=== PATIENT | female | born 1940 | race Two or more races ===

== ENCOUNTER 2024-10-07 20:48 | Inpatient (IN) | payer MEDICARE, BC ==
[2024-10-07 21:14] LABS: Basophils # (A) 0.11 10*3/uL (0.00-0.10); Basophils % (A) 1.1 %; Eosinophils # (A) 0.22 10*3/uL (0.04-0.35); Eosinophils % (A) 2.1 %; HCT 46.4 % (37.2-46.3); HGB 15.5 g/dL (12.0-15.0); Lymphocytes # (A) 1.81 10*3/uL (0.90-5.00); Lymphocytes % (A) 17.5 %; MCH 32.4 pg (27.0-32.0); MCHC 33.4 g/dL (32.0-37.0); MCV 96.9 fL (80.0-97.0); Monocytes # (A) 1.01 10*3/uL (0.20-1.00); Monocytes % (A) 9.8 %; Neutrophils # (A) 7.14 10*3/uL (1.80-7.70); Neutrophils % (A) 68.9 %; Platelet Count 205 10*3/uL (140-440); RBC 4.79 10*6/uL (4.10-5.20); RDW 17.1 % (11.5-14.5); WBC 10.35 10*3/uL (4.50-10.00)
[2024-10-07 21:35] LABS: INR 1.0 (<1.2); Partial Thromboplastin Time 27.6 sec (22.0-30.0); Prothrombin Time 11.4 sec (10.0-12.5)
[2024-10-07] MEDS: SODIUM CHLORIDE 0.9% 500 ML 500 ML IV ONE (21:36)
[2024-10-07 21:37] LABS: ALT 28 U/L (4-34); AST 48 U/L (14-36); African American GFR (CKD) 44 (>60 ml/min/1.73 sqM); Albumin 3.8 g/dL (3.5-5.0); Alkaline Phosphatase 146 U/L (38-126); Anion Gap 13 mmol/L; Blood Urea Nitrogen 44 mg/dL (7-17); Calcium 9.2 mg/dL (8.4-10.2); Carbon Dioxide 34 mmol/L (22-30); Chloride 90 mmol/L (98-107); Glucose 162 mg/dL (74-99); Magnesium 2.2 mg/dL (1.6-2.3); Non-African American GFR(CKD) 38 (>60 ml/min/1.73 sqM); Sodium 137 mmol/L (137-145); Total Protein 6.8 g/dL (6.3-8.2)
[2024-10-07] MEDS: ONDANSETRON 4 MG/2 ML VIAL IVP STA (21:37)
[2024-10-07] MEDS: METOPROLOL TARTRATE 25 MG TAB PO STA (21:39)
[2024-10-07 21:56] LABS: Potassium 2.5 mmol/L (3.5-5.1)
[2024-10-07] MEDS: POTASSIUM CHLORIDE ER 20 MEQ TAB.ER PO STA (22:13)
--- NOTE | 2024-10-07 22:29 | XR ---
EXAMINATION TYPE: XR chest 2V DATE OF EXAM: 10/07/2024 9:28 PM COMPARISON: None. CLINICAL INDICATION: Female, 84 years old with history of dysrhythmia, TECHNIQUE: XR chest 2V view(s) obtained. FINDINGS: The heart size is normal. The pulmonary vasculature is prominent. There is a posterior infiltrate. Mild infiltrates at the lung bases frontal projection. There is fla ttening of diaphragms compatible with COPD IMPRESSION: 1. Bibasilar infiltrates. Correlate for atelectasis or pneumonia. Atypical pulmonary edema could be c onsidered. 2. COPD [facility], , 10/07/2024 10:27 PM
[2024-10-08] MEDS ORDERED: MORPHINE SULFATE 4 MG/ML SYRINGE IV PRN (00:30)
[2024-10-08] MEDS ORDERED: NITROGLYCERIN SL TABS 0.4 MG TAB SUBLINGUAL PRN (00:30)
--- NOTE | 2024-10-08 00:45 | ED ---
Chest Pain HPI - General Chief Complaint: Chest Pain Stated Complaint: abnormal labs Time Seen by Provider: 10/07/24 20:57 Source: patient Mode of arrival: EMS Limitations: no limitations - History of Present Illness Initial Comments: This patient has not 84-year-old woman who arrives here from [facility] to have evaluation for chest pain, palpitations, nausea and dyspnea. The patient states that the symptoms started earlier in the day and have gotten worse. When nursing staff checked on her they found her heart rate to be in the 130s. The patient does have history of atrial fibrillation and had cardioversion recently at [facility]. The patient is currently taking rivaroxaban and metoprolol. MD Complaint: chest pain -: hour(s) Onset: during rest Pain Location: substernal Pain Radiation: back Severity: moderate Quality: aching Consistency: constant Improves With: nothing Worsens With: nothing Anginal Symptoms: dyspnea Other Symptoms: palpitations Treatments Prior to Arrival: nitroglycerin, oxygen - Related Data Home Medications Medication Instructions Recorded Confirmed Ammonium Lactate Lotion 1 applic TOPICAL Q12H 10/08/24 10/17/24 [Lac-Hydrin 12% Lotion] Ascorbic Acid [Vitamin C] 500 mg PO BID 10/08/24 10/17/24 Aspirin 81 mg PO DAILY 10/08/24 10/17/24 Atorvastatin [Lipitor] 40 mg PO HS 10/08/24 10/17/24 Dapagliflozin Propanediol [Farxiga] 10 mg PO DAILY 10/08/24 10/17/24 Metoprolol Tartrate [Lopressor] 25 mg PO BID 10/08/24 10/17/24 Multivitamin + Minerals 1 tab PO DAILY 10/08/24 10/17/24 Nitro-Time Er 2.5mg 2.5 mg PO BID 10/08/24 10/17/24 Oyster Shell 500mg 500 mg PO HS 10/08/24 10/17/24 Pantoprazole Sodium [Protonix] 40 mg PO DAILY 10/08/24 10/17/24 Potassium Chloride [Klor-Con M20] 20 meq PO DAILY 10/08/24 10/17/24 Rivaroxaban [Xarelto] 15 mg PO HS 10/08/24 10/17/24 bisacodyL [Dulcolax] 10 mg RECTAL DAILY PRN 10/08/24 10/17/24 Magnesium Hydroxide [Milk of 2,400 mg PO DAILY PRN 10/17/24 10/17/24 Magnesia] Na Phos,M-B/Na Phos,Di-Ba [Fleet 133 ml RECTAL DAILY PRN 10/17/24 10/17/24 Adult] Previous Rx's Medication Instructions Recorded Spironolactone [Aldactone] 12.5 mg PO DAILY #0 tab 10/13/24 Torsemide [Soaanz] 20 mg PO DAILY #0 10/13/24 Allergies Allergy/AdvReac Type Severity Reaction Status Date / Time diatrizoic acid Allergy Unknown Verified 10/17/24 08:28 Penicillins Allergy Anaphylaxis Verified 10/17/24 08:28 prednisone Allergy Unknown Verified 10/17/24 08:28 shellfish derived Allergy Anaphylaxis Verified 10/17/24 08:28 Sulfa (Sulfonamide Allergy Unknown Verified 10/17/24 08:28 Antibiotics) Iodinated Contrast Media AdvReac Nausea & Verified 10/17/24 08:28 Vomiting & Diarrhea Review of Systems ROS Statement: Those systems with pertinent positive or pertinent negative responses have been documented in the HPI. ROS Other: All systems not noted in ROS Statement are negative. Constitutional: Denies: fever, chills Respiratory: Reports: as per HPI, dyspnea. Denies: cough Cardiovascular: Reports: as per HPI, chest pain, palpitations. Denies: edema, syncope Gastrointestinal: Reports: nausea. Denies: abdominal pain, vomiting, diarrhea Genitourinary: Denies: dysuria, hematuria Musculoskeletal: Denies: back pain Skin: Denies: rash Neurological: Denies: headache, weakness EKG Findings - EKG Results: EKG: interpreted by ERMD, normal axis EKG shows: tachycardia (Rate approximately 135 bpm), atrial fibrillation - Blocks, [place], Hypertrophy, ST Abn: AV and intraventricular conduction: right bundle branch block (fixed/intermittent, complete/incomplete) (Incomplete) Repolarization changes or abnormalities: ST or T wave suggestive of ischemia (Lateral ST depressions) Past Medical History Past Medical History: Coronary Artery Disease (CAD), Heart Failure, Hyperlipidemia Additional Past Medical History / Comment(s): CKD stage 3, low sodium and low potassium, NSTEMI 07/2024 History of Any Multi-Drug Resistant Organisms: None Reported Past Surgical History: No Surgical Hx Reported General Exam Limitations: no limitations General appearance: alert, in no apparent distress Head exam: Present: atraumatic, normocephalic Eye exam: Present: normal appearance. Absent: scleral icterus, conjunctival injection Neck exam: Present: normal inspection Respiratory exam: Present: normal lung sounds bilaterally. Absent: respiratory distress, wheezes, rales, rhonchi, stridor, accessory muscle use Cardiovascular Exam: Present: tachycardia, irregular rhythm, systolic murmur. Absent: diastolic murmur, rubs, gallop GI/Abdominal exam: Present: soft. Absent: distended, tenderness, guarding, rebound, rigid, mass Extremities exam: Present: normal inspection, normal capillary refill, pedal edema. Absent: calf tenderness Back exam: Present: normal inspection. Absent: CVA tenderness (R), CVA tenderness (L) Neurological exam: Present: alert Skin exam: Present: warm, dry, intact, normal color. Absent: rash Course Vital Signs 10/07/24 10/07/24 10/07/24 20:52 21:35 22:00 Temperature 98.1 F Pulse Rate 135 H 90 75 Respiratory 16 16 16 Rate Blood Pressure 96/62 100/63 105/54 O2 Sat by Pulse 97 98 98 Oximetry 10/07/24 10/08/24 10/08/24 22:48 00:00 02:00 Temperature 98.1 F 98.3 F Pulse Rate 78 70 71 Respiratory 18 18 16 Rate Blood Pressure 83/44 98/52 84/50 O2 Sat by Pulse 98 98 98 Oximetry 10/08/24 10/08/24 10/08/24 04:00 06:34 07:52 Temperature 98.4 F 97.8 F Pulse Rate 71 61 66 Respiratory 18 18 18 Rate Blood Pressure 92/51 91/52 106/92 O2 Sat by Pulse 98 98 94 L Oximetry 10/08/24 10/08/24 10/08/24 10:00 13:00 18:00 Temperature 97.8 F 97.8 F Pulse Rate 73 85 74 Respiratory 18 18 18 Rate Blood Pressure 100/56 110/64 99/56 O2 Sat by Pulse 96 95 96 Oximetry 10/08/24 10/08/24 20:22 20:26 Temperature Pulse Rate 77 80 Respiratory 16 Rate Blood Pressure 89/57 90/55 O2 Sat by Pulse 93 L Oximetry Chest Pain [facility] - MDM Patient is an 84-year-old woman sent from [facility] to have evaluation of chest pain, tachycardia, nausea. The patient is in atrial fibrillation with rapid ventricular rate. The patient is given IV fluids and beta-vanessa and did achieve rate control. The patient's symptoms resolved with rate control. Initial labs do reveal slightly elevated troponin. Patient will be admitted to have serial cardiac enzymes, telemetry monitoring, cardiology consultation Patient had chest x-ray that I interpreted as negative for acute infiltrate or pneumothorax, suspect element of congestive heart failure Was pt. sent in by a medical professional or institution (, PA, KILN CHARGER, urgent care, hospital, or alf...) When possible be specific @ -[No] Did you speak to anyone other than the patient for history (EMS, parent, family, police, friend...)? What history was obtained from this source @ -[No] Did you review nursing and triage notes (agree or disagree)? Why? @ -[I reviewed and agree with nursing and triage notes] Were old charts reviewed (outside hosp., previous admission, EMS record, old EKG, old radiological studies, urgent care reports/EKG's, alf records)? Report findings @ -[No old charts were reviewed] Differential Diagnosis (chest pain, altered mental status, abdominal pain women, abdominal pain men, vaginal bleeding, weakness, fever, dyspnea, syncope, headache, dizziness, GI bleed, back pain, seizure, CVA, palpatations, mental health, musculoskeletal)? @ -[Differential Chest Pain: Stable Angina, Unstable Angina, STEMI, NSTEMI Aortic Dissection, Pneumothorax, Musculoskeletal, Esophageal Spasm GERD, Cholecystitis, Pancreatitis, Zoster, this is not meant to be an all-inclusive list. EKG interpreted by me (3pts min.). @ -[Interpreted as above] X-rays interpreted by me (1pt min.). @ -[I interpreted as above CT interpreted by me (1pt min.). @ -[None done] U/S interpreted by me (1pt. min.). @ -[None done] What testing was considered but not performed or refused? (CT, X-rays, U/S, labs)? Why? @ -[None] What meds were considered but not given or refused? Why? @ -[IV heparin initially considered but the patient is compliant with her Xarelto, this will be held Did you discuss the management of the patient with other professionals (professionals i.e. , PA, KILN CHARGER, lab, RT, psych nurse, social media marketing manager, collection technician, teacher, sheriff's officer, home health care case manager)? Give summary @ -[Case discussed with admitting physician and treatment recommendations are incorporated Was smoking cessation discussed for >3mins.? @ -[No] Was critical care preformed (if so, how long)? @ -[Yes, 35 minutes Were there social determinants of health that impacted care today? How? (Homelessness, low income, unemployed, alcoholism, drug addiction, transportation, low edu. Level, literacy, decrease access to med. care, long-term, rehab)? @ -[No] Was there de-escalation of care discussed even if they declined (Discuss DNR or withdrawal of care, Hospice)? DNR status @ -[No] What co-morbidities impacted this encounter? (DM, HTN, Smoking, COPD, CAD, Cancer, CVA, ARF, Chemo, Hep., AIDS, mental health diagnosis, sleep apnea, morbid obesity)? @ - A-fib with recent cardioversion, hypertension which Was patient admitted / discharged? Hospital course, mention meds given and route, prescriptions, significant lab abnormalities, going to OR and other pertinent info. @ -As above Undiagnosed new problem with uncertain prognosis? @ -[No] Drug Therapy requiring intensive monitoring for toxicity (Heparin, Nitro, Insulin, Cardizem)? @ -[No] Were any procedures done? @ -[No] Diagnosis/symptom? @ -[Atrial fibrillation with rapid ventricular rate Acute NSTEMI hypokalemia Acute, or Chronic, or Acute on Chronic? @ -[Acute Uncomplicated (without systemic symptoms) or Complicated (systemic symptoms)? @ -[UnComplicated Side effects of treatment? @ -[No] Exacerbation, Progression, or Severe Exacerbation? @ -[No] Poses a threat to life or bodily function? How? (Chest pain, [place], [place], pneumonia, PE, COPD, DKA, ARF, appy, cholecystitis, CVA, Diverticulitis, Homicidal, Suicidal, threat to staff... and all critical care pts) @ -[Yes, requires further cardiology evaluation and treatment All treatments are based on ideal body weight as in ED triage Disposition Clinical Impression: Chest pain, Atrial fibrillation with rapid ventricular response, NSTEMI (non-ST elevated myocardial infarction) Disposition: ADMITTED IP TO THIS HOSP Condition: Fair Is patient prescribed a controlled substance at d/c from ED?: No
[2024-10-08] MEDS: SODIUM CHLORIDE 0.9% 1,000 ML IV SCH (01:17)
[2024-10-08] MEDS: HEPARIN SODIUM 1,000 UN/ML (10ML VL) IV ONE (05:41)
[2024-10-08] MEDS: HEPARIN SOD,PORK IN 0.45% NACL 25,000 UNIT in 0.45% NACL 1 250ML.BAG IV SCH (05:42)
[2024-10-08 07:01] LABS: HCT 43.9 % (37.2-46.3); HGB 14.1 g/dL (12.0-15.0); MCH 32.2 pg (27.0-32.0); MCHC 32.1 g/dL (32.0-37.0); MCV 100.2 fL (80.0-97.0); Platelet Count 191 10*3/uL (140-440); RBC 4.38 10*6/uL (4.10-5.20); RDW 17.1 % (11.5-14.5); WBC 8.89 10*3/uL (4.50-10.00)
--- NOTE | 2024-10-08 07:20 | XR ---
EXAMINATION TYPE: XR chest 1V DATE OF EXAM: 10/08/2024 7:11 AM COMPARISON: Chest radiographs from 10/07/2024 TECHNIQUE: XR chest 1V Portable AP radiograph of the chest. CLINICAL INDICATION:Female, 84 years old with history of CHF; FINDINGS: Lungs/Pleura: No pleural effusion or focal consolidation or pneumothorax. Diffuse interstitial promin ence. Heart/mediastinum: Cardiomediastinal silhouette is enlarged and stable. Atherosclerotic calcificatio ns are seen in the aorta. Musculoskeletal: No acute osseous pathology. IMPRESSION: Cardiomegaly with diffuse interstitial prominence. Correlate for possible CHF exacerbation. [facility], , 10/08/2024 7:18 AM
[2024-10-08] MEDS: POTASSIUM CHLORIDE 20 MEQ in WATER FOR INJECTION 1 100ML.BAG IVPB SCH (08:17)
[2024-10-08 08:20] LABS: ALT 27 U/L (4-34); AST 99 U/L (14-36); African American GFR (CKD) 44 (>60 ml/min/1.73 sqM); Albumin 3.2 g/dL (3.5-5.0); Alkaline Phosphatase 117 U/L (38-126); Anion Gap 5 mmol/L; Blood Urea Nitrogen 38 mg/dL (7-17); Calcium 8.4 mg/dL (8.4-10.2); Carbon Dioxide 37 mmol/L (22-30); Chloride 99 mmol/L (98-107); Glucose 92 mg/dL (74-99); Non-African American GFR(CKD) 38 (>60 ml/min/1.73 sqM); Potassium 3.1 mmol/L (3.5-5.1); Sodium 141 mmol/L (137-145); Total Protein 6.0 g/dL (6.3-8.2)
[2024-10-08 08:27] LABS: NT-Pro-B-Type Natriuretic Pept 11000 pg/mL
[2024-10-08 08:30] LABS: INR 1.1 (<1.2); Prothrombin Time 11.9 sec (10.0-12.5)
[2024-10-08] MEDS: MAGNESIUM SULFATE-D5W PMX 1 GM in DEXTROSE/WATER 1 100ML.BAG IVPB SCH (08:44)
[2024-10-08] MEDS: METOPROLOL TARTRATE 25 MG TAB PO SCH (10:22)
--- NOTE | 2024-10-08 13:54 | P.HPIM ---
History of Present Illness H&P Date: 10/08/24 Chief Complaint: Atrial fibrillation with RVR/non-ST elevation AR HISTORY OF PRESENT ILLNESS: This is an 84-year-old female with a previous medical history signific ant for hypertension and hypertensive cardiovascular disease, mixed hyperlipidemia, paroxysmal atrial fibrillation, coronary artery disease involving knik artery, allergic rhinitis, hypothyroidism, mitral regurgitation and aortic insufficiency, patient was recently hospitalized at [facility] for what appears to be an acute diastolic heart failure due to atrial fibrillation with rapid ventricular response, she also was diagnosed with non-ST elevation myocardial infarction at that time she underwent DC cardioversion she was sent to [facility] for physical therapy rehabilitation patient was doing just fine, I saw her the [id number] about a day before yesterday, and she was doing much much better, she was planning to get out of the [facility] yesterday she was sitting up and developed to have a significant left-sided chest pain radiating to the jaw down the arm she was given 3 nitroglycerin and her blood pressure dropped, her heart rate went to 240, she developed to have an atrial fibrillation with rapid regular response she was sent to the emergency department at [facility] she was found to be in atrial fibrillation with RVR, at the same time her troponin was slightly elevated however the second troponin came back elevated at 4 patient was ruled into acute non-ST elevation AR, she was started on heparin drip, she was also started on metoprolol 25 mg orally twice every day, she is currently back in sinus rhythm, she appears to be somewhat hypotensive, she did receive IV fluid in the form of normal saline at 75 cc an hour, I will keep that until reevaluate the patient with a chest x-ray REVIEW OF SYSTEMS: Constitutional: No documented fever, no chills, no night sweats. No weight change. positive for weakness, fatigue or lethargy. No daytime sleepiness. EENT: No headache. No blurred vision or double vision, no loss of vision. No loss of Hearing, no ringing in the ears, no dizziness. No nasal drainage or congestion. No epistaxis. No sore throat. Lungs: positive for shortness of breath, no cough, no sputum production. No wheezing. Reports dyspnea with activity. Cardiovascular: positive for chest pain, positive for lower extremity edema. positive for palpitations. No paroxysmal nocturnal dyspnea. positive for orthopnea. No lightheadedness or dizziness. No syncopal episodes. Abdominal: Reports abdominal pain. positive for nausea, vomiting. No diarrhea. No constipation. No bloody or tarry stools reports loss of appetite. Genitourinary: No dysuria, increased frequency, urgency. No urinary retention. Musculoskeletal: No myalgias. No muscle weakness, no gait dysfunction, no frequent falls. No back pain. No neck pain. Integumentary: No wounds, no lesions. No rash or pruritus. No unusual bruising. No change in hair or nails. Neurologic: No aphasia. No facial droop. No change in mentation. No head injury. No headache. No paralysis. No paresthesia. Psychiatric: No depression. positive for anxiety. No mood swings. Endocrine: No abnormal blood sugars. No weight change. PAST MEDICAL HISTORY: Hypertension and hypertensive vascular disease. Mixed hyperlipidemia. Hypothyroidism. Coronary artery disease. Paroxysmal atrial fibrillation. Nonrheumatic mitral regurgitation None rheumatic aortic valve regurgitation Allergic rhinitis. Chronic diastolic heart failure. PAST SURGICAL HISTORY: Appendectomy 1985 hysterectomy 1985 Colonoscopy. Right breast biopsy 1967 Left breast biopsy 1984 Hernia repair 1998 D&C 1984 Cataract surgery 2014 Hand and wrist ORIF 2023 Danny Riggins SOCIAL HISTORY: Patient denies any alcohol ingestion, she denies any drug use or abuse, she does not have any marijuana use, she used to smoke, she quit many years ago, she is currently at [facility] for physical therapy and rehabilitation. FAMILY HISTORY: Father at age 64 from colon cancer mother at the age of 84 from CVA patient had 1 sister who at the age of 36 from cervical cancer and had complication from radiation treatment including colitis and she has 1 at the age of 68 from cervical cancer and 1 from ischemic cardiomyopathy post AICD patient had 1 son who at the age of 42 from cardiac arrest PHYSICAL EXAMINATION: General: 84-year-old female laying down in bed in no respiratory distress HEENT: Head is atraumatic, normocephalic, pupils were equal round reactive to l ight and recommendation, extraocular muscle movement were intact, sclera nonicteric, conjunctivae were pale, mucous membranes of the mouth are somewhat dry. Neck: Supple, positive for JVP, decreased carotid upstroke bilaterally, no lymphadenopathy. Chest: Decreased breath sounds at the bases, few rhonchi, no expiratory wheezes, no chest wall tenderness, no intercostal retractions. Heart: First heart sound is normal, second heart sounds normal systolic ejection murmur 2/6 again the left sternal border. Abdomen: Soft, nontender, nondistended, positive bowel sounds. Extremities: There is +1 edema no calf tenderness DP +2 bilaterally. Neurologic examination: Patient is awake alert and oriented x3, cranial nerves II-12 appear grossly intact, muscle power were 4 out of 5 in upper extremities and 3 out of 5 in bilateral lower extremities, deep tendon reflexes normal bilaterally. ASSESSMENT AND PLAN: 1. Atrial fibrillation with rapid ventricular response converted back into sinus rhythm, continue metoprolol 25 mg orally twice every day, continue heparin drip, transition the patient into Xarelto 15 mg orally once every day, monitor the patient symptoms very closely, cardiology consultation, get records from [facility] 2. Non-ST elevation myocardial infarction. Continue patient on aspirin 81 mg once every day, heparin drip, continue patient on metoprolol 25 mg orally twice every day, start the patient on Lipitor 40 mg orally once every day, cardiology consultation, patient may need to go for left heart catheterization when she is more stable. 3. Hypertension and hypertensive cardiovascular disease. Continue patient on metoprolol 25 mg orally twice every day. Monitor the patient blood pressure very closely, hold for systolic blood pressure less than 100. 4. Hyperlipidemia. Continue the patient on atorvastatin 40 mg orally once every day monitor lipid panel, keep LDL 55-70. 5. Paroxysmal atrial fibrillation currently in sinus rhythm continue treatment as in Paragraph#1. 6. Hypothyroidism. Currently not taking any medication for replacement brooke tor the patient TSH and free T4. 7. Acute on chronic diastolic heart failure. we will maintain the patient on metoprolol 25 mg orally twice every day, start the patient on Lasix 40 mg IV every 12 hours, metolazone 2.5 mg orally once every day, monitor the patient input and output and daily weight. 8. Hypokalemia patient will receive 40 meq in the ER I will give another 40 mill equivalent IV piggyback x 1 check potassium and magnesium patient will be given magnesium sulfate 2 g piggyback x 1 as well. Patient will be started on potassium chloride 20 mill equivalents orally twice every day 9. Chronic kidney disease stage IIIa. Monitor the patient input and output and avoid nephrotoxins. Continue Lasix 40 mg IV push every 12 hours, metolazone 2.5 mg orally once every day monitor the patient potassium very closely 10. Osteopenia of the right hip. Stable at this time. 11. Medical debility. Physical therapy evaluation. 12. DVT prophylaxis. Currently on heparin drip will transition into Xarelto 15 mg orally once every day. 13. GI prophylaxis. Continue patient on Protonix 40 mg orally once every day. 14. Admit to inpatient. Estimated length of stay 2 midnights. 15. Patient is full code. Past Medical History Past Medical History: Coronary Artery Disease (CAD), Heart Failure, Hyperlipidemia Additional Past Medical History / Comment(s): CKD stage 3, low sodium and low potassium, NSTEMI 07/2024 History of Any Multi-Drug Resistant Organisms: None Reported Past Surgical History: No Surgical Hx Reported Medications and Allergies Home Medications Medication Instructions Recorded Confirmed Type Ammonium Lactate Lotion 1 applic TOPICAL Q12H 10/08/24 10/08/24 History [Lac-Hydrin 12% Lotion] Ascorbic Acid [Vitamin C] 500 mg PO BID 10/08/24 10/08/24 History Aspirin 81 mg PO DAILY 10/08/24 10/08/24 History Atorvastatin [Lipitor] 40 mg PO HS 10/08/24 10/08/24 History Dapagliflozin Propanediol [Farxiga] 10 mg PO DAILY 10/08/24 10/08/24 History Magnesium Hydroxide [Milk of 7,200 mg PO DAILY PRN 10/08/24 10/08/24 History Magnesia Concentrate] Menthol-Zinc Oxide Oint 1 applic TOPICAL BID 10/08/24 10/08/24 History [Calmoseptine Ointment] Metoprolol Tartrate [Lopressor] 25 mg PO BID 10/08/24 10/08/24 History Multivitamin + Minerals 1 tab PO DAILY 10/08/24 10/08/24 History Nitro-Time Er 2.5mg 2.5 mg PO BID 10/08/24 10/08/24 History Oyster Shell 500mg 500 mg PO HS 10/08/24 10/08/24 History Pantoprazole Sodium [Protonix] 40 mg PO DAILY 10/08/24 10/08/24 History Potassium Chloride [Klor-Con M20] 20 meq PO DAILY 10/08/24 10/08/24 History Rivaroxaban [Xarelto] 15 mg PO HS 10/08/24 10/08/24 History Torsemide [Soaanz] 40 mg PO DAILY 10/08/24 10/08/24 History bisacodyL [Dulcolax] 10 mg RECTAL DAILY PRN 10/08/24 10/08/24 History metOLazone 2.5 mg PO DAILY 10/08/24 10/08/24 History Allergies Allergy/AdvReac Type Severity Reaction Status Date / Time diatrizoic acid Allergy Unknown Verified 10/08/24 09:12 Penicillins Allergy Anaphylaxis Verified 10/08/24 09:12 prednisone Allergy Unknown Verified 10/08/24 09:12 shellfish derived Allergy Anaphylaxis Verified 10/08/24 09:12 Sulfa (Sulfonamide Allergy Unknown Verified 10/08/24 09:12 Antibiotics) Iodinated Contrast Media AdvReac Nausea & Verified 10/08/24 09:12 Vomiting & Diarrhea Physical Exam Vitals: Vital Signs Temp Pulse Resp BP Pulse Ox 10/08/24 06:34 98.4 F 61 18 91/52 98 10/08/24 04:00 71 18 92/51 98 10/08/24 02:00 98.3 F 71 16 84/50 98 10/08/24 00:00 98.1 F 70 18 98/52 98 10/07/24 22:48 78 18 83/44 98 10/07/24 22:00 75 16 105/54 98 10/07/24 21:35 90 16 100/63 98 10/07/24 20:52 98.1 F 135 H 16 96/62 97 Intake and Output 10/07/24 10/07/24 10/08/24 14:59 22:59 06:59 Other: Weight 51.256 kg Results CBC & Chem 7: 10/08/24 06:43 10/08/24 06:43 Labs: Abnormal Lab Results - Last 24 Hours (Table) 10/07/24 10/07/24 10/07/24 Range/Units 20:48 20:48 20:48 WBC 10.35 H (4.50-10.00) 10*3/uL Hgb 15.5 H (12.0-15.0) g/dL Hct 46.4 H (37.2-46.3) % MCH 32.4 H (27.0-32.0) pg Immature Gran # 0.06 H (0.00-0.04) 10*3/uL Monocytes # 1.01 H (0.20-1.00) 10*3/uL Basophils # 0.11 H (0.00-0.10) 10*3/uL Potassium 2.5 L* (3.5-5.1) mmol/L Chloride 90 L (98-107) mmol/L Carbon Dioxide 34 H (22-30) mmol/L BUN 44 H (7-17) mg/dL Creatinine 1.29 H (0.52-1.04) mg/dL Glucose 162 H (74-99) mg/dL Total Bilirubin 1.9 H (0.2-1.3) mg/dL AST 48 H (14-36) U/L Alkaline Phosphatase 146 H (38-126) U/L Troponin I 0.105 H* (0.000-0.034) ng/mL 10/08/24 Range/Units 03:40 WBC (4.50-10.00) 10*3/uL Hgb (12.0-15.0) g/dL Hct (37.2-46.3) % MCH (27.0-32.0) pg Immature Gran # (0.00-0.04) 10*3/uL Monocytes # (0.20-1.00) 10*3/uL Basophils # (0.00-0.10) 10*3/uL Potassium (3.5-5.1) mmol/L Chloride (98-107) mmol/L Carbon Dioxide (22-30) mmol/L BUN (7-17) mg/dL Creatinine (0.52-1.04) mg/dL Glucose (74-99) mg/dL Total Bilirubin (0.2-1.3) mg/dL AST (14-36) U/L Alkaline Phosphatase (38-126) U/L Troponin I 4.630 H* (0.000-0.034) ng/mL
[2024-10-08] MEDS ORDERED: MAGNESIUM HYDROXIDE 2,400 MG/30 ML CUP PO PRN (13:55)
[2024-10-08] MEDS: ASPIRIN 81 MG PO SCH (15:14)
[2024-10-08] MEDS: AMMONIUM LACTATE 12% LOTION 225 GM BTL TOPICAL SCH (16:39)
--- NOTE | 2024-10-08 18:54 | P.CRDCN ---
History of Present Illness Consult date: 10/08/24 History of present illness: HISTORY OF PRESENTING ILLNESS: 84-year-old with PMH of hypertension dyslipidemia, paroxysmal atrial fibrillation CAD. She was recently at [facility] for mild HFpEF exacerbation, A-fib RVR. She also had mild NSTEMI. She underwent cardioversion and was sent to [facility]. This time she presented to the hospital because of left-sided chest pain that was radiating to her jaw. She was also noticed to be in tachycardia when she was having the substernal chest heaviness symptoms. Admission EKG appears to be atrial flutter with RVR with heart rate of around 135 bpm along with diffuse ST depression Repeat EKG shows atrial flutter with 2 is to 1 conduction with residual first- degree AV block Initial potassium 2.5, repeat 3.1, creatinine 1.29, magnesium 2.2, Troponin 0.1, 4.6, 9.9 NT-proBNP 11,000 Hb 15.5 Chest x-ray does not show significant pulm congestion or consolidation Home medication metolazone 2.5 mg daily, torsemide 40 mg daily, Xarelto 15, metoprolol 25 twice daily, Farxiga 10, Lipitor 40, aspirin 81 ... ................................................................................ ........................................................... REVIEW OF SYSTEMS: 14 point review of system is negative except what is mentioned above in HPI. ................................................................ .............................................................................. PHYSICAL EXAMINATION: Neck: Brisk carotid upstroke, no jugular venous distention. Lungs: Poor inspiratory effort, mild crackles audible Heart: Irregular pulse, mild systolic murmur audible Abdomen: Soft nontender, positive bowel sounds. Extremities: Mild lower extremity edema Neuro: Alert, oritented, no focal deficits. Detailed neuro exam was not performed. ............................................................ ................................................................................ .. ASSESSMENT: # Atrial flutter with 2 is to 1 conduction, currently rate controlled. RVR on admission with symptoms of chest pressure and rate related EKG changes with diffuse ST depression # Paroxysmal atrial fibrillation with recent cardioversion at [facility] # Mild HFpEF exacerbation # Type II NSTEMI, likely from demand supply mismatch from RVR # Hypokalemia # CKD PLAN: Continue IV heparin drip for 48 hours Aspirin, Lipitor, Farxiga 10 mg Reduce Lasix from twice daily to once a day 40 mg IV. Transition to p.o. tomorrow. Continue torsemide 40 daily. Metoprolol 25 twice daily Start amiodarone 400 mg twice daily for 1 week thereafter reduce the dose to 200 mg twice daily for 1 week and thereafter reduce the dose to 200 mg daily. Start date 10/08/2024 Gavin Soto MD, [facility], [place] Past Medical History Past Medical History: Coronary Artery Disease (CAD), Heart Failure, Hyperlipidemia Additional Past Medical History / Comment(s): CKD stage 3, low sodium and low potassium, NSTEMI 07/2024 History of Any Multi-Drug Resistant Organisms: None Reported Past Surgical History: No Surgical Hx Reported Medications and Allergies Home Medications Medication Instructions Recorded Confirmed Type Ammonium Lactate Lotion 1 applic TOPICAL Q12H 10/08/24 10/08/24 History [Lac-Hydrin 12% Lotion] Ascorbic Acid [Vitamin C] 500 mg PO BID 10/08/24 10/08/24 History Aspirin 81 mg PO DAILY 10/08/24 10/08/24 History Atorvastatin [Lipitor] 40 mg PO HS 10/08/24 10/08/24 History Dapagliflozin Propanediol [Farxiga] 10 mg PO DAILY 10/08/24 10/08/24 History Magnesium Hydroxide [Milk of 7,200 mg PO DAILY PRN 10/08/24 10/08/24 History Magnesia Concentrate] Menthol-Zinc Oxide Oint 1 applic TOPICAL BID 10/08/24 10/08/24 History [Calmoseptine Ointment] Metoprolol Tartrate [Lopressor] 25 mg PO BID 10/08/24 10/08/24 History Multivitamin + Minerals 1 tab PO DAILY 10/08/24 10/08/24 History Nitro-Time Er 2.5mg 2.5 mg PO BID 10/08/24 10/08/24 History Oyster Shell 500mg 500 mg PO HS 10/08/24 10/08/24 History Pantoprazole Sodium [Protonix] 40 mg PO DAILY 10/08/24 10/08/24 History Potassium Chloride [Klor-Con M20] 20 meq PO DAILY 10/08/24 10/08/24 History Rivaroxaban [Xarelto] 15 mg PO HS 10/08/24 10/08/24 History Torsemide [Soaanz] 40 mg PO DAILY 10/08/24 10/08/24 History bisacodyL [Dulcolax] 10 mg RECTAL DAILY PRN 10/08/24 10/08/24 History metOLazone 2.5 mg PO DAILY 10/08/24 10/08/24 History Allergies Allergy/AdvReac Type Severity Reaction Status Date / Time diatrizoic acid Allergy Unknown Verified 10/08/24 09:12 Penicillins Allergy Anaphylaxis Verified 10/08/24 09:12 prednisone Allergy Unknown Verified 10/08/24 09:12 shellfish derived Allergy Anaphylaxis Verified 10/08/24 09:12 Sulfa (Sulfonamide Allergy Unknown Verified 10/08/24 09:12 Antibiotics) Iodinated Contrast Media AdvReac Nausea & Verified 10/08/24 09:12 Vomiting & Diarrhea Physical Exam Vitals: Vital Signs Temp Pulse Resp BP Pulse Ox 10/08/24 18:00 97.8 F 74 18 99/56 96 10/08/24 13:00 85 18 110/64 95 10/08/24 10:00 97.8 F 73 18 100/56 96 10/08/24 07:52 97.8 F 66 18 106/92 94 L 10/08/24 06:34 98.4 F 61 18 91/52 98 10/08/24 04:00 71 18 92/51 98 10/08/24 02:00 98.3 F 71 16 84/50 98 10/08/24 00:00 98.1 F 70 18 98/52 98 10/07/24 22:48 78 18 83/44 98 10/07/24 22:00 75 16 105/54 98 10/07/24 21:35 90 16 100/63 98 10/07/24 20:52 98.1 F 135 H 16 96/62 97 Intake and Output 10/08/24 10/08/24 10/08/24 06:59 14:59 22:59 Intake Total 49.311 Balance 49.311 Intake: Intake, IV Titration 49.311 Amount Heparin Sod,Pork in 0.45% 49.311 NaCl 25,000 unit In 0.45 % NaCl 1 250ml.bag @ 12 UNITS/KG/HR 6.151 mls/hr IV .Q24H [facility] Rx#: [id number] Results 10/08/24 06:43 10/08/24 06:43 Cardiac Enzymes 10/07/24 10/07/24 10/08/24 Range/Units 20:48 20:48 03:40 AST 48 H (14-36) U/L Troponin I 0.105 H* 4.630 H* (0.000-0.034) ng/mL 10/08/24 10/08/24 Range/Units 06:43 06:43 AST 99 H (14-36) U/L Troponin I 9.900 H* (0.000-0.034) ng/mL Coagulation 10/07/24 10/08/24 10/08/24 Range/Units 20:48 07:42 12:10 PT 11.4 11.9 (10.0-12.5) sec APTT 27.6 79.0 H (22.0-30.0) sec CBC 10/07/24 10/08/24 Range/Units 20:48 06:43 WBC 10.35 H 8.89 (4.50-10.00) 10*3/uL RBC 4.79 4.38 (4.10-5.20) 10*6/uL Hgb 15.5 H 14.1 (12.0-15.0) g/dL Hct 46.4 H 43.9 (37.2-46.3) % Plt Count 205 191 (140-440) 10*3/uL Comprehensive Metabolic Panel 10/07/24 10/08/24 Range/Units 20:48 06:43 Sodium 137 141 (137-145) mmol/L Potassium 2.5 L* 3.1 L (3.5-5.1) mmol/L Chloride 90 L 99 (98-107) mmol/L Carbon Dioxide 34 H 37 H (22-30) mmol/L BUN 44 H 38 H (7-17) mg/dL Creatinine 1.29 H 1.29 H (0.52-1.04) mg/dL Glucose 162 H 92 (74-99) mg/dL Calcium 9.2 8.4 (8.4-10.2) mg/dL AST 48 H 99 H (14-36) U/L ALT 28 27 (4-34) U/L Alkaline Phosphatase 146 H 117 (38-126) U/L Total Protein 6.8 6.0 L (6.3-8.2) g/dL Albumin 3.8 3.2 L (3.5-5.0) g/dL Current Medications Generic Name Dose Route Start Last Admin Trade Name Freq PRN Reason Stop Dose Admin Amiodarone HCl 200 mg 10/08/24 21:00 Amiodarone 200 Mg Tab PO BID [facility] Ascorbic Acid 500 mg 10/08/24 21:00 Ascorbic Acid 500 Mg Tab PO BID [facility] Aspirin 81 mg 10/08/24 14:00 10/08/24 15:14 Aspirin 81 Mg PO 81 mg DAILY [facility] Administration Atorvastatin Calcium 40 mg 10/08/24 21:00 Atorvastatin 40 Mg Tab PO HS [facility] Bisacodyl 10 mg 10/08/24 13:55 Bisacodyl 10 Mg Supp RECTAL DAILY PRN Constipation Calamine/Phenol 1 applic 10/08/24 21:00 Menthol-Zinc Oxide Oint 113 Gm Tube TOPICAL BID [facility] Protocol Calcium Carbonate/Glycine 500 mg 10/08/24 21:00 Calcium Carbonate 500 Mg Chewable PO HS [facility] Dapagliflozin 10 mg 10/09/24 09:00 Dapagliflozin Propanediol 10 Mg Tablet PO DAILY [facility] Furosemide 40 mg 10/09/24 09:00 Furosemide 10 Mg/Ml 4 Ml Vial IV DAILY [facility] Heparin Sodium (Porcine) 0 unit 10/08/24 05:15 Heparin Sodium 1,000 Un/Ml (10ml Vl) IV PER PROTOCOL PRN Low PTT Protocol Heparin Sodium/Sodium Chloride 250 mls @ 6.151 mls/hr 10/08/24 05:15 10/08/24 13:43 25,000 unit/ Sodium Chloride IV 10 units/kg/hr .Q24H [facility] 5.126 mls/hr Titration Protocol 12 UNITS/KG/HR Lactic Acid 1 applic 10/08/24 14:00 10/08/24 16:39 Ammonium Lactate 12% Lotion 225 Gm Btl TOPICAL Not Given Q12HR [facility] Protocol Magnesium Hydroxide 7,200 mg 10/08/24 13:55 Magnesium Hydroxide 2,400 Mg/30 Ml Cup PO DAILY PRN Constipation Metolazone 2.5 mg 10/09/24 09:00 Metolazone 2.5 Mg Tab PO DAILY [facility] Metoprolol Tartrate 25 mg 10/08/24 09:00 10/08/24 10:22 Metoprolol Tartrate 25 Mg Tab PO 25 mg BID [facility] Administration Morphine Sulfate 4 mg 10/08/24 00:30 Morphine Sulfate 4 Mg/Ml Syringe IV Q5M PRN Chest Pain Multivitamins 1 each 10/09/24 09:00 Multivitamins, Thera 1 Each Tab PO DAILY [facility] Nitroglycerin 0.4 mg 10/08/24 00:30 Nitroglycerin Sl Tabs 0.4 Mg Tab SUBLINGUAL Q5M PRN Chest Pain Non-Formulary Medication 2.5 mg 10/08/24 21:00 Nitro-Time Er 2.5mg PO BID [facility] Pantoprazole Sodium 40 mg 10/09/24 09:00 Pantoprazole 40 Mg Tablet PO DAILY [facility] Potassium Chloride 20 meq 10/08/24 21:00 Potassium Chloride Er 20 Meq Tab.Er PO BID [facility] Intake and Output 10/08/24 10/08/24 10/08/24 06:59 14:59 22:59 Intake Total 49.311 Balance 49.311 Intake: Intake, IV Titration 49.311 Amount Heparin Sod,Pork in 0.45% 49.311 NaCl 25,000 unit In 0.45 % NaCl 1 250ml.bag @ 12 UNITS/KG/HR 6.151 mls/hr IV .Q24H [facility] Rx#: [id number] 10/08/24 06:43 10/08/24 06:43
[2024-10-08] MEDS ORDERED: FUROSEMIDE 10 MG/ML 4 ML VIAL IV SCH (21:00)
[2024-10-08] MEDS: NITRO TIME PO SCH (21:44)
[2024-10-08] MEDS: CALCIUM CARBONATE 500 MG CHEWABLE PO SCH (22:07)
[2024-10-08] MEDS: AMIODARONE 200 MG TAB PO SCH (22:07)
[2024-10-08] MEDS: POTASSIUM CHLORIDE ER 20 MEQ TAB.ER PO SCH (22:07)
[2024-10-08] MEDS: ATORVASTATIN 40 MG TAB PO SCH (22:07)
[2024-10-08] MEDS: ASCORBIC ACID 500 MG TAB PO SCH (22:07)
[2024-10-08] MEDS: MENTHOL-ZINC OXIDE OINT 113 GM TUBE TOPICAL SCH (22:08)
[2024-10-09 06:00] LABS: HCT 47.1 % (37.2-46.3); HGB 14.9 g/dL (12.0-15.0); MCH 31.6 pg (27.0-32.0); MCHC 31.6 g/dL (32.0-37.0); MCV 100.0 fL (80.0-97.0); Platelet Count 197 10*3/uL (140-440); RBC 4.71 10*6/uL (4.10-5.20); RDW 17.5 % (11.5-14.5); WBC 15.10 10*3/uL (4.50-10.00)
[2024-10-09 06:35] LABS: ALT 43 U/L (4-34); AST 97 U/L (14-36); African American GFR (CKD) 65 (>60 ml/min/1.73 sqM); Albumin 3.4 g/dL (3.5-5.0); Alkaline Phosphatase 154 U/L (38-126); Anion Gap 8 mmol/L; Blood Urea Nitrogen 30 mg/dL (7-17); Calcium 9.1 mg/dL (8.4-10.2); Carbon Dioxide 25 mmol/L (22-30); Chloride 104 mmol/L (98-107); Glucose 152 mg/dL (74-99); Non-African American GFR(CKD) 56 (>60 ml/min/1.73 sqM); Sodium 137 mmol/L (137-145); Total Protein 6.2 g/dL (6.3-8.2)
[2024-10-09 06:47] LABS: Potassium 4.2 mmol/L (3.5-5.1)
[2024-10-09 08:47] LABS: Cholesterol 142.00 mg/dL (0.00-200.00); HDL Cholesterol 63.30 mg/dL (40.00-60.00); LDL Cholesterol,Calculated 65.3 mg/dL (0.0-131.0); Triglycerides 66.90 mg/dL (0.00-149.00); VLDL Calculation 13.38 mg/dL (5.00-40.00)
[2024-10-09] MEDS: MULTIVITAMINS, THERA 1 EACH TAB PO SCH (09:55)
[2024-10-09] MEDS: DAPAGLIFLOZIN PROPANEDIOL 10 MG TABLET PO SCH (09:55)
[2024-10-09] MEDS: FUROSEMIDE 10 MG/ML 4 ML VIAL IV SCH (09:56)
[2024-10-09] MEDS: PANTOPRAZOLE 40 MG TABLET PO SCH (09:56)
[2024-10-09] MEDS: metOLazone 2.5 MG TAB PO SCH (09:56)
[2024-10-09] MEDS: LIDOCAINE 4% PATCH TOPICAL SCH (11:10)
[2024-10-09] MEDS: HEPARIN SODIUM 1,000 UN/ML (10ML VL) IV ONE (11:15)
--- NOTE | 2024-10-09 12:14 | P.PN ---
Subjective Progress Note Date: 10/09/24 HISTORY OF PRESENTING ILLNESS: 84-year-old with PMH of hypertension dyslipidemia, paroxysmal atrial fibril lation CAD. She was recently at [facility] for mild HFpEF exacerbation, A-fib RVR. She also had mild NSTEMI. She underwent cardioversion and was sent to [facility]. This time she presented to the hospital because of left-sided chest pain that was radiating to her jaw. She was also noticed to be in tachycardia when she was having the substernal chest heaviness symptoms. Admission EKG appears to be atrial flutter with RVR with heart rate of around 135 b[address] with diffuse [address] depression Repeat EKG shows atrial flutter with 2 is to 1 conduction with residual first- degree AV block Initial potassium 2.5, repeat 3.1, creatinine 1.29, magnesium 2.2, Troponin 0.1, 4.6, 9.9 NT-proBNP 11,000 LDL 65, TG 66 Hb 15.5 Chest x-ray does not show significant pulm congestion or consolidation Home medication metolazone 2.5 mg daily, torsemide 40 mg daily, Xarelto 15, metoprolol 25 twice daily, Farxiga 10, Lipitor 40, aspirin 81 Echo from July 2024 shows EF 55, moderate TR, moderate MR, mild AI, RVSP 45 ................................................................................ .............................................................. Progress note 10/09/2024 Patient converted out of atrial flutter to sinus rhythm around 3:30 AM 10/09/2024 initially she had bradycardia, currently heart rates around 60 when she is sitting in the chair. BP 107/61 labs shows hemoglobin 14.9, BUN 30, creatinine 0.9, ...................................................................... ........................................................................ PHYSICAL EXAMINATION: Neck: Brisk carotid upstroke, no jugular venous distention. Lungs: Poor inspiratory effort, mild crackles audible Heart: Regular pulses, mild systolic murmur audible Abdomen: Soft nontender, positive bowel sounds. Extremities: 1+ lower extremity edema with chronic skin changes and erythema in bilateral lower extremity. Neuro: Alert, oritented, no focal deficits. Detailed neuro exam was not performed. ................................................................................ .............................................................. ASSESSMENT: # Atrial flutter with 2 is to 1 conduction, currently rate controlled. RVR on admission with symptoms of chest pressure and rate related EKG changes with diffuse ST depression # Paroxysmal atrial fibrillation with recent cardioversion at [facility] # Mild HFpEF exacerbation # Type II NSTEMI, likely from demand supply mismatch from RVR # Hypokalemia # CKD PLAN: Plan is to offer rhythm control with amiodarone especially because patient had c hest pain and elevated troponin with RVR with rate related EKG changes. Recommend outpatient ischemic evaluation with heart catheter with patient and family would like it. Also evaluate candidacy for atrial flutter ablation. Obtain echocardiogram to see if NSTEMI caused any cardiomyopathy, however we will not be able to obtain it while patient is in the hospital because of lack of staff over the weekend Continue IV heparin drip for next 24 hours. Tomorrow discontinue heparin start Xarelto 15 Aspirin, Lipitor 20 , Farxiga 10 mg Stop Lasix IV, start torsemide 20 mg, Aldactone 12.5 mg daily. She is on metolazone 2.5 mg daily at home, will continue. Will continue. Metoprolol 25 twice daily Amiodarone 200 mg twice daily for 1 week and thereafter reduce the dose to 200 mg daily. Start date 10/08/2024 Monitor telemetry for bradycardia. Anticipate discharge in next 24 to 48 hours Objective - Vital Signs Vital signs: Vital Signs Temp 97.7 F 10/09/24 11:23 Pulse 64 10/09/24 11:23 Resp 16 10/09/24 11:23 BP 107/61 10/09/24 11:23 Pulse Ox 96 10/09/24 11:23 FiO2 Intake & Output 10/08/24 10/09/24 10/09/24 18:59 06:59 18:59 Intake Total 49.311 345.596 Balance 49.311 345.596 Weight 53.1 kg Intake: Intake, IV Titration 49.311 105.596 Amount Heparin Sod,Pork in 0.45% 49.311 105.596 NaCl 25,000 unit In 0.45 % NaCl 1 250ml.bag @ 12 UNITS/KG/HR 6.151 mls/hr IV .Q24H [facility] Rx#: [id number] Oral 240 Other: Voiding Method Toilet Toilet # Voids 2 # Bowel Movements 1 - Labs CBC & Chem 7: 10/09/24 05:41 10/09/24 05:41 Labs: Abnormal Lab Results - Last 24 Hours (Table) 10/08/24 10/08/24 10/09/24 Range/Units 12:10 19:58 05:41 WBC (4.50-10.00) 10*3/uL Hct (37.2-46.3) % MCV (80.0-97.0) fL MCHC (32.0-37.0) g/dL MPV (9.5-12.2) fL APTT 79.0 H 42.2 H (22.0-30.0) sec BUN 30 H (7-17) mg/dL Glucose 152 H (74-99) mg/dL Total Bilirubin 1.9 H (0.2-1.3) mg/dL AST 97 H (14-36) U/L ALT 43 H (4-34) U/L Alkaline Phosphatase 154 H (38-126) U/L Total Protein 6.2 L (6.3-8.2) g/dL Albumin 3.4 L (3.5-5.0) g/dL HDL Cholesterol 63.30 H (40.00-60.00) mg/dL 10/09/24 10/09/24 Range/Units 05:41 05:41 WBC 15.10 H (4.50-10.00) 10*3/uL Hct 47.1 H (37.2-46.3) % MCV 100.0 H (80.0-97.0) fL MCHC 31.6 L (32.0-37.0) g/dL MPV 12.3 H (9.5-12.2) fL APTT 34.5 H (22.0-30.0) sec BUN (7-17) mg/dL Glucose (74-99) mg/dL Total Bilirubin (0.2-1.3) mg/dL AST (14-36) U/L ALT (4-34) U/L Alkaline Phosphatase (38-126) U/L Total Protein (6.3-8.2) g/dL Albumin (3.5-5.0) g/dL HDL Cholesterol (40.00-60.00) mg/dL
--- NOTE | 2024-10-09 12:39 | P.PN ---
Subjective Progress Note Date: 10/09/24 HISTORY OF PRESENT ILLNESS: This is an 84-year-old female with a previous medical history signi ficant for hypertension and hypertensive cardiovascular disease, mixed hyperlipidemia, paroxysmal atrial fibrillation, coronary artery disease involving [place] artery, allergic rhinitis, hypothyroidism, mitral regurgitation and aortic insufficiency, patient was recently hospitalized at [facility] for what appears to be an acute diastolic heart failure due to atrial fibrillation with rapid ventricular response, she also was diagnosed with non-ST elevation myocardial infarction at that time she underwent DC cardioversion she was sent to [facility] for physical therapy rehabilitation patient was doing just fine, I saw her the [id number] about a day before yesterday, and she was do ing much much better, she was planning to get out of the long-term yesterday she was sitting up and developed to have a significant left-sided chest pain radiating to the jaw down the arm she was given 3 nitroglycerin and her blood pressure dropped, her heart rate went to 240, she developed to have an atrial fibrillation with rapid regular response she was sent to the emergency department at [facility] she was found to be in atrial fibrillation with RVR, at the same time her troponin was slightly elevated however the second troponin came back elevated at 4 patient was ruled into acute non-ST elevation [place], she was started on heparin drip, she was also started on metoprolol 25 mg or ally twice every day, she is currently back in sinus rhythm, she appears to be somewhat hypotensive, she did receive IV fluid in the form of normal saline at 75 cc an hour, I will keep that until reevaluate the patient with a chest x-ray 10/09: Patient sitting up in the chair is feeling much better today, she is not on any oxygen at this point in time, her oxygen saturation is perfectly fine, she has no chest pain so far no shortness of breath, no orthopnea, no edema both lower extremities much better than yesterday, she continues to be on heparin drip, patient did have a non-ST elevation myocardial infarction along with an acute diastolic heart failure that she has been recovering from the very well, we will continue current treatment plan, follow the patient very closely, no left heart catheterization is planned by cardiology so far REVIEW OF SYSTEMS: Constitutional: No documented fever, no chills, no night sweats. No weight change. positive for weakness, fatigue or lethargy. No daytime sleepiness. EENT: No headache. No blurred vision or double vision, no loss of vision. No loss of Hearing, no ringing in the ears, no dizziness. No nasal drainage or congestion. No epistaxis. No sore throat. Lungs: positive for shortness of breath, no cough, no sputum production. No wh eezing. Reports dyspnea with activity. Cardiovascular: positive for chest pain, positive for lower extremity edema. positive for palpitations. No paroxysmal nocturnal dyspnea. positive for orthopnea. No lightheadedness or dizziness. No syncopal episodes. Abdominal: Reports abdominal pain. positive for nausea, vomiting. No diarrhea. No constipation. No bloody or tarry stools reports loss of appetite. Genitourinary: No dysuria, increased frequency, urgency. No urinary retention. Musculoskeletal: No myalgias. No muscle weakness, no gait dysfunction, no frequent falls. No back pain. No neck pain. Integumentary: No wounds, no lesions. No rash or pruritus. No unusual bruising. No change in hair or nails. Neurologic: No aphasia. No facial droop. No change in mentation. No head injury. No headache. No paralysis. No paresthesia. Psychiatric: No depression. positive for anxiety. No mood swings. Endocrine: No abnormal blood sugars. No weight change. PHYSICAL EXAMINATION: General: 84-year-old female laying down in bed in no respiratory distress HEENT: Head is atraumatic, normocephalic, pupils were equal round reactive to light and recommendation, extraocular muscle movement were intact, sclera nonicteric, conjunctivae were pale, mucous membranes of the mouth are somewhat dry. Neck: Supple, positive for JVP, decreased carotid upstroke bilaterally, no lymph adenopathy. Chest: Decreased breath sounds at the bases, few rhonchi, no expiratory wheezes, no chest wall tenderness, no intercostal retractions. Heart: First heart sound is normal, second heart sounds normal systolic ejection murmur 2/6 again the left sternal border. Abdomen: Soft, nontender, nondistended, positive bowel sounds. Extremities: There is +1 edema no calf tenderness DP +2 bilaterally. Neurologic examination: Patient is awake alert and oriented x3, cranial nerves II-12 appear grossly intact, muscle power were 4 out of 5 in upper extremities and 3 out of 5 in bilateral lower extremities, deep tendon reflexes normal bilaterally. ASSESSMENT AND PLAN: 1. Atrial flutter with 2-1 block and paroxysmal atrial fibrillation currently in sinus rhythm continue patient on heparin drip, transition to Xarelto 15 mg orally once every day, continue metoprolol 25 mg orally twice every day, continue amiodarone 200 mg orally twice a no plan for any left heart catheterization at this point in time. Patient did have an echocardiogram that was done at [facility] we will try to obtain the results from the other hospital 2. Non-ST elevation myocardial infarction. Continue patient on aspirin 81 mg once every day, heparin drip, statin to Xarelto 15 mg orally once a continue patient on metoprolol 25 mg orally twice every day, start the patient on Lipitor 40 mg orally once every day. There is no plan for left heart catheterization at this stage 3. Hypertension and hypertensive cardiovascular disease. Continue patient on metoprolol 25 mg orally twice every day. Monitor the patient blood pressure very closely, hold for systolic blood pressure less than 100. 4. Hyperlipidemia. Continue the patient on atorvastatin 40 mg orally once every day monitor lipid panel, keep LDL 55-70. 5. Paroxysmal atrial fibrillation currently in sinus rhythm continue treatment as in Paragraph#1. 6. Hypothyroidism. Currently not taking any medication for replacement monitor the patient TSH and free T4. 7. Acute on chronic diastolic heart failure. we will maintain the patient on metoprolol 25 mg orally twice every day, start the patient on Lasix 40 mg IV every 12 hours, metolazone 2.5 mg orally once every day, switch the patient to torsemide 20 mg orally once every day, monitor the patient input and output and daily weight. Also continue spironolactone 12.5 mg once every day continue Farxiga 10 mg orally once every day 8. Hypokalemia on her last potassium was 4.2 9. Chronic kidney disease stage IIIa. Monitor the patient input and output and avoid nephrotoxins. Continue torsemide 20 mg once every day, metolazone 2.5 mg once every day as well as spironolactone 12.5 mg once every day continue patient on Farxiga 10 mg once every day 10. Osteopenia of the right hip. Stable at this time. 11. Medical debility. Physical therapy evaluation, likely going back to [facility]. 12. DVT prophylaxis. Currently on heparin drip will transition into Xarelto 15 mg orally once every day. 13. GI prophylaxis. Continue patient on Protonix 40 mg orally once every day. 14. Guarded prognosis Objective - Vital Signs Vital signs: Vital Signs Temp 97.7 F 10/09/24 11:23 Pulse 64 10/09/24 11:23 Resp 16 10/09/24 11:23 BP 107/61 10/09/24 11:23 Pulse Ox 96 10/09/24 11:23 FiO2 Intake & Output 10/08/24 10/09/24 10/09/24 18:59 06:59 18:59 Intake Total 49.311 345.596 Balance 49.311 345.596 Weight 53.1 kg Intake: Intake, IV Titration 49.311 105.596 Amount Heparin Sod,Pork in 0.45% 49.311 105.596 NaCl 25,000 unit In 0.45 % NaCl 1 250ml.bag @ 12 UNITS/KG/HR 6.151 mls/hr IV .Q24H [facility] Rx#: [id number] Oral 240 Other: Voiding Method Toilet Toilet # Voids 2 # Bowel Movements 1 - Labs CBC & Chem 7: 10/09/24 05:41 10/09/24 05:41 Labs: Abnormal Lab Results - Last 24 Hours (Table) 10/08/24 10/08/24 10/09/24 Range/Units 12:10 19:58 05:41 WBC (4.50-10.00) 10*3/uL Hct (37.2-46.3) % MCV (80.0-97.0) fL MCHC (32.0-37.0) g/dL MPV (9.5-12.2) fL APTT 79.0 H 42.2 H (22.0-30.0) sec BUN 30 H (7-17) mg/dL Glucose 152 H (74-99) mg/dL Total Bilirubin 1.9 H (0.2-1.3) mg/dL AST 97 H (14-36) U/L ALT 43 H (4-34) U/L Alkaline Phosphatase 154 H (38-126) U/L Total Protein 6.2 L (6.3-8.2) g/dL Albumin 3.4 L (3.5-5.0) g/dL HDL Cholesterol 63.30 H (40.00-60.00) mg/dL 10/09/24 10/09/24 Range/Units 05:41 05:41 WBC 15.10 H (4.50-10.00) 10*3/uL Hct 47.1 H (37.2-46.3) % MCV 100.0 H (80.0-97.0) fL MCHC 31.6 L (32.0-37.0) g/dL MPV 12.3 H (9.5-12.2) fL APTT 34.5 H (22.0-30.0) sec BUN (7-17) mg/dL Glucose (74-99) mg/dL Total Bilirubin (0.2-1.3) mg/dL AST (14-36) U/L ALT (4-34) U/L Alkaline Phosphatase (38-126) U/L Total Protein (6.3-8.2) g/dL Albumin (3.5-5.0) g/dL HDL Cholesterol (40.00-60.00) mg/dL
[2024-10-09] MEDS: TORSEMIDE 20 MG TAB PO SCH (15:10)
[2024-10-09] MEDS: SPIRONOLACTONE 25 MG TAB PO SCH (15:10)
[2024-10-09] MEDS: ATORVASTATIN 20 MG TAB PO SCH (21:17)
[2024-10-10 07:36] LABS: Basophils # (A) 0.06 10*3/uL (0.00-0.10); Basophils % (A) 0.4 %; Eosinophils # (A) 0.03 10*3/uL (0.04-0.35); Eosinophils % (A) 0.2 %; HCT 42.4 % (37.2-46.3); HGB 13.5 g/dL (12.0-15.0); Lymphocytes # (A) 1.89 10*3/uL (0.90-5.00); Lymphocytes % (A) 11.9 %; MCH 31.2 pg (27.0-32.0); MCHC 31.8 g/dL (32.0-37.0); MCV 97.9 fL (80.0-97.0); Monocytes # (A) 1.90 10*3/uL (0.20-1.00); Monocytes % (A) 12.0 %; Neutrophils # (A) 11.77 10*3/uL (1.80-7.70); Neutrophils % (A) 74.4 %; Platelet Count 175 10*3/uL (140-440); RBC 4.33 10*6/uL (4.10-5.20); RDW 17.5 % (11.5-14.5); WBC 15.82 10*3/uL (4.50-10.00)
[2024-10-10 08:28] LABS: ALT 44 U/L (4-34); AST 66 U/L (14-36); African American GFR (CKD) 56 (>60 ml/min/1.73 sqM); Albumin 3.3 g/dL (3.5-5.0); Alkaline Phosphatase 146 U/L (38-126); Anion Gap 8 mmol/L; Blood Urea Nitrogen 31 mg/dL (7-17); Calcium 9.1 mg/dL (8.4-10.2); Carbon Dioxide 32 mmol/L (22-30); Chloride 96 mmol/L (98-107); Glucose 122 mg/dL (74-99); Magnesium 2.0 mg/dL (1.6-2.3); Non-African American GFR(CKD) 48 (>60 ml/min/1.73 sqM); Potassium 3.5 mmol/L (3.5-5.1); Sodium 136 mmol/L (137-145); Total Protein 6.1 g/dL (6.3-8.2)
[2024-10-10] MEDS: POTASSIUM CHLORIDE ER 20 MEQ TAB.ER PO SCH (10:49)
[2024-10-10] MEDS: HEPARIN SODIUM 1,000 UN/ML (10ML VL) IV ONE ×2 (10:49→18:40)
--- NOTE | 2024-10-10 10:54 | XR ---
EXAMINATION TYPE: XR chest 1V DATE OF EXAM: 10/10/2024 COMPARISON: 10/08/2024 CLINICAL INDICATION: Female, 84 years old with history of JEFFREY; TECHNIQUE: Single frontal view of the chest is obtained. FINDINGS: There is stable moderate cardiomegaly and mild pulmonary vascular congestion. There is interval devel opment of small bilateral pleural effusions. No pneumothorax. The osseous structures are intact. IMPRESSION: Findings consistent with CHF with development of small bilateral pleural effusions. [facility], Workstation: [id number] 10/10/2024 10:52 AM
--- NOTE | 2024-10-10 11:07 | P.PN ---
Subjective Progress Note Date: 10/10/24 HISTORY OF PRESENT ILLNESS: This is an 84-year-old female with a previous medical history signi ficant for hypertension and hypertensive cardiovascular disease, mixed hyperlipidemia, paroxysmal atrial fibrillation, coronary artery disease involving [place] artery, allergic rhinitis, hypothyroidism, mitral regurgitation and aortic insufficiency, patient was recently hospitalized at [facility] for what appears to be an acute diastolic heart failure due to atrial fibrillation with rapid ventricular response, she also was diagnosed with non-ST elevation myocardial infarction at that time she underwent DC cardioversion she was sent to [facility] for physical therapy rehabilitation patient was doing just fine, I saw her the [id number] about a day before yesterday, and she was do ing much much better, she was planning to get out of the [place] [facility] yesterday she was sitting up and developed to have a significant left-sided chest pain radiating to the jaw down the arm she was given 3 nitroglycerin and her blood pressure dropped, her heart rate went to 240, she developed to have an atrial fibrillation with rapid regular response she was sent to the emergency department at [facility] she was found to be in atrial fibrillation with RVR, at the same time her troponin was slightly elevated however the second troponin came back elevated at 4 patient was ruled into acute non-ST elevation [place], she was started on heparin drip, she was also started on metoprolol 25 mg or ally twice every day, she is currently back in sinus rhythm, she appears to be somewhat hypotensive, she did receive IV fluid in the form of normal saline at 75 cc an hour, I will keep that until reevaluate the patient with a chest x-ray 10/09: Patient sitting up in the chair is feeling much better today, she is not on any oxygen at this point in time, her oxygen saturation is perfectly fine, she has no chest pain so far no shortness of breath, no orthopnea, no edema both lower extremities much better than yesterday, she continues to be on heparin drip, patient did have a non-ST elevation myocardial infarction along with an acute diastolic heart failure that she has been recovering from the very well, we will continue current treatment plan, follow the patient very closely, no left heart catheterization is planned by cardiology so far 10/10: Patient is doing much better today, her oxygenation 99% room air, she denies any chest pain, shortness of breath at this time, she has no abdominal pain, nausea vomiting or diarrhea, she appears to be at baseline, we will try to transfer the patient back to [facility] tomorrow morning. I will obtain a chest x- ray to make sure the resolution of CHF. REVIEW OF SYSTEMS: Constitutional: No documented fever, no chills, no night sweats. No weight change. positive for weakness, fatigue or lethargy. No daytime sleepiness. EENT: No headache. No blurred vision or double vision, no loss of vision. No loss of Hearing, no ringing in the ears, no dizziness. No nasal drainage or congestion. No epistaxis. No sore throat. Lungs: positive for shortness of breath, no cough, no sputum production. No wheezing. Reports dyspnea with activity. Cardiovascular: positive for chest pain, positive for lower extremity edema. positive for palpitations. No paroxysmal nocturnal dyspnea. positive for orthopnea. No lightheadedness or dizziness. No syncopal episodes. Abdominal: Reports abdominal pain. positive for nausea, vomiting. No diarrhea. No constipation. No bloody or tarry stools reports loss of appetite. Genitourinary: No dysuria, increased frequency, urgency. No urinary retention. Musculoskeletal: No myalgias. No muscle weakness, no gait dysfunction, no frequent falls. No back pain. No neck pain. Integumentary: No wounds, no lesions. No rash or pruritus. No unusual bruising. No change in hair or nails. Neurologic: No aphasia. No facial droop. No change in mentation. No head injury. No headache. No paralysis. No paresthesia. Psychiatric: No depression. positive for anxiety. No mood swings. Endocrine: No abnormal blood sugars. No weight change. PHYSICAL EXAMINATION: General: 84-year-old female laying down in bed in no respiratory distress HEENT: Head is atraumatic, normocephalic, pupils were equal round reactive to light and recommendation, extraocular muscle movement were intact, sclera nonicteric, conjunctivae were pale, mucous membranes of the mouth are somewhat dry. Neck: Supple, positive for JVP, decreased carotid upstroke bilaterally, no lymphadenopathy. Chest: Decreased breath sounds at the bases, few rhonchi, no expiratory wheezes, no chest wall tenderness, no intercostal retractions. Heart: First heart sound is normal, second heart sounds normal systolic ejection murmur 2/6 again the left sternal border. Abdomen: Soft, nontender, nondistended, positive bowel sounds. Extremities: There is +1 edema no calf tenderness DP +2 bilaterally. Neurologic examination: Patient is awake alert and oriented x3, cranial nerves II-12 appear grossly intact, muscle power were 4 out of 5 in upper extremities and 3 out of 5 in bilateral lower extremities, deep tendon reflexes normal bilaterally. ASSESSMENT AND PLAN: 1. Atrial flutter with 2-1 block and paroxysmal atrial fibrillation currently in sinus rhythm continue patient on heparin drip, transition to Xarelto 15 mg orally once every day, continue metoprolol 25 mg orally twice every day, continue amiodarone 200 mg orally twice a no plan for any left heart catheterization at this point in time. Patient did have an echocardiogram that was done at [facility] we will try to obtain the results from the other hospital 2. Non-ST elevation myocardial infarction. Continue patient on aspirin 81 mg once every day, heparin drip, statin to Xarelto 15 mg orally once a continue patient on metoprolol 25 mg orally twice every day, start the patient on Lipitor 40 mg orally once every day. There is no plan for left heart catheterization at this stage 3. Hypertension and hypertensive cardiovascular disease. Continue patient on metoprolol 25 mg orally twice every day. Monitor the patient blood pressure very closely, hold for systolic blood pressure less than 100. 4. Hyperlipidemia. Continue the patient on atorvastatin 40 mg orally once every day monitor lipid panel, keep LDL 55-70. 5. Paroxysmal atrial fibrillation currently in sinus rhythm continue treatment as in Paragraph#1. 6. Hypothyroidism. Currently not taking any medication for replacement monitor the patient TSH and free T4. 7. Acute on chronic diastolic heart failure. we will maintain the patient on metoprolol 25 mg orally twice every day, start the patient on Lasix 40 mg IV every 12 hours, metolazone 2.5 mg orally once every day, switch the patient to torsemide 20 mg orally once every day, monitor the patient input and output and daily weight. Also continue spironolactone 12.5 mg once every day continue Farxiga 10 mg orally once every day 8. Hypokalemia . Will start potassium chloride 20 mill equivalents orally twice every day. 9. Chronic kidney disease stage IIIa. Monitor the patient input and output and avoid nephrotoxins. Continue torsemide 20 mg once every day, metolazone 2.5 mg once every day as well as spironolactone 12.5 mg once every day continue patient on Farxiga 10 mg once every day 10. Osteopenia of the right hip. Stable at this time. 11. Medical debility. Physical therapy evaluation, likely going back to [facility]. 12. DVT prophylaxis. Currently on heparin drip will transition into Xarelto 15 mg orally once every day. 13. GI prophylaxis. Continue patient on Protonix 40 mg orally once every day. 14. [place] tomorrow morning. Objective - Vital Signs Vital signs: Vital Signs Temp 97.0 F L 10/10/24 07:45 Pulse 62 10/10/24 07:45 Resp 14 10/10/24 07:45 BP 92/55 10/10/24 07:45 Pulse Ox 98 10/10/24 07:45 FiO2 Intake & Output 10/09/24 10/10/24 10/10/24 18:59 06:59 18:59 Intake Total 1711.318 289.371 240 Output Total 1300 500 400 Balance 411.318 -210.629 -160 Weight 53.8 kg Intake: Intake, IV Titration 151.318 49.371 Amount Heparin Sod,Pork in 0.45% 151.318 49.371 NaCl 25,000 unit In 0.45 % NaCl 1 250ml.bag @ 12 UNITS/KG/HR 6.151 mls/hr IV .Q24H [facility] Rx#: [id number] Oral 1560 240 240 Output: Urine 1300 500 400 Other: Voiding Method Toilet Toilet External Catheter External Catheter # Voids 2 # Bowel Movements 1 - Labs CBC & Chem 7: 10/10/24 06:26 10/10/24 06:26 Labs: Abnormal Lab Results - Last 24 Hours (Table) 10/09/24 10/09/24 10/10/24 Range/Units 16:26 23:49 06:26 WBC 15.82 H (4.50-10.00) 10*3/uL MCV 97.9 H (80.0-97.0) fL MCHC 31.8 L (32.0-37.0) g/dL MPV 12.7 H (9.5-12.2) fL Immature Gran # 0.17 H (0.00-0.04) 10*3/uL Neutrophils # 11.77 H (1.80-7.70) 10*3/uL Monocytes # 1.90 H (0.20-1.00) 10*3/uL Eosinophils # 0.03 L (0.04-0.35) 10*3/uL APTT 74.5 H 41.3 H (22.0-30.0) sec Sodium (137-145) mmol/L Chloride (98-107) mmol/L Carbon Dioxide (22-30) mmol/L BUN (7-17) mg/dL Creatinine (0.52-1.04) mg/dL Glucose (74-99) mg/dL Total Bilirubin (0.2-1.3) mg/dL AST (14-36) U/L ALT (4-34) U/L Alkaline Phosphatase (38-126) U/L Total Protein (6.3-8.2) g/dL Albumin (3.5-5.0) g/dL 10/10/24 10/10/24 Range/Units 06:26 06:26 WBC (4.50-10.00) 10*3/uL MCV (80.0-97.0) fL MCHC (32.0-37.0) g/dL MPV (9.5-12.2) fL Immature Gran # (0.00-0.04) 10*3/uL Neutrophils # (1.80-7.70) 10*3/uL Monocytes # (0.20-1.00) 10*3/uL Eosinophils # (0.04-0.35) 10*3/uL APTT 36.0 H (22.0-30.0) sec Sodium 136 L (137-145) mmol/L Chloride 96 L (98-107) mmol/L Carbon Dioxide 32 H (22-30) mmol/L BUN 31 H (7-17) mg/dL Creatinine 1.06 H (0.52-1.04) mg/dL Glucose 122 H (74-99) mg/dL Total Bilirubin 2.6 H (0.2-1.3) mg/dL AST 66 H (14-36) U/L ALT 44 H (4-34) U/L Alkaline Phosphatase 146 H (38-126) U/L Total Protein 6.1 L (6.3-8.2) g/dL Albumin 3.3 L (3.5-5.0) g/dL
[2024-10-10] MEDS: HEPARIN SODIUM 1,000 UN/ML (10ML VL) IV PRN (18:15)
--- NOTE | 2024-10-10 23:16 | P.PN ---
Subjective Progress Note Date: 10/10/24 HISTORY OF PRESENTING ILLNESS: 84-year-old with PMH of hypertension dyslipidemia, paroxysmal atrial fibril lation CAD. She was recently at [facility] for mild HFpEF exacerbation, A-fib RVR. She also had mild NSTEMI. She underwent cardioversion and was sent to [facility]. This time she presented to the hospital because of left-sided chest pain that was radiating to her jaw. She was also noticed to be in tachycardia when she was having the substernal chest heaviness symptoms. Admission EKG appears to be atrial flutter with RVR with heart rate of around 135 [address] with diffuse [address] depression Repeat EKG shows atrial flutter with 2 is to 1 conduction with residual first- degree AV block Troponin 0.1, 4.6, 9.9 NT-proBNP 11,000 LDL 65, TG 66 Hb 15.5 Chest x-ray does not show significant pulm congestion or consolidation Home medication metolazone 2.5 mg daily, torsemide 40 mg daily, Xarelto 15, metoprolol 25 twice daily, Farxiga 10, Lipitor 40, aspirin 81 Echo from July 2024 shows EF 55, moderate TR, moderate MR, mild AI, RVSP 45 ............................................... ................................................................................ ............... Progress note 10/09/2024 Patient converted out of atrial flutter to sinus rhythm around 3:30 AM 10/09/2024 initially she had bradycardia, currently heart rates around 60 when she is sitting in the chair. BP 107/61 labs shows hemoglobin 14.9, BUN 30, creatinine 0.9, 10/10/2024 BP 98/60, heart rate 64 bpm Labs shows BUN 31, creatinine 1.06, Hb 13, WBC 15 ................................................ ................................................................................ .............. PHYSICAL EXAMINATION: Neck: Brisk carotid upstroke, no jugular venous distention. Lungs: Poor inspiratory effort, mild crackles audible Heart: Regular pulses, mild systolic murmur audible Abdomen: Soft nontender, positive bowel sounds. Extremities: 1+ lower extremity edema with chronic skin changes and erythema in bilateral lower extremity. Neuro: Alert, oritented, no focal deficits. Detailed neuro exam was not performed. .............................................................................. ................................................................ ASSESSMENT: # Atrial flutter with 2 is to 1 conduction, currently rate controlled. RVR on admission with symptoms of chest pressure and rate related EKG changes with diffuse ST depression # Paroxysmal atrial fibrillation with recent cardioversion at [facility] # Mild HFpEF exacerbation # Type II NSTEMI, likely from demand supply mismatch from RVR # Hypokalemia # CKD PLAN: Plan is to offer rhythm control with amiodarone especially because patient had chest pain and elevated troponin with RVR with rate related EKG changes. Recom mend outpatient ischemic evaluation with heart catheter with patient and family would like it. Also evaluate candidacy for atrial flutter ablation. Obtain echocardiogram to see if NSTEMI caused any cardiomyopathy Continue IV heparin drip until echo results are back. If echo is acceptable with no significant cardiomyopathy, may discontinue heparin and start Xarelto 15 Aspirin, Lipitor 20 , Farxiga 10 mg Stop Lasix IV, start torsemide 20 mg, Aldactone 12.5 mg daily. Discontinue metolazone Metoprolol 25 twice daily Amiodarone 200 mg twice daily for 1 week and thereafter reduce the dose to 200 mg daily. Start date 10/08/2024 Monitor telemetry for bradycardia. Anticipate discharge in next 24 to 48 hours Objective - Vital Signs Vital signs: Vital Signs Temp 98.1 F 10/10/24 19:52 Pulse 67 10/10/24 19:52 Resp 18 10/10/24 19:52 BP 102/52 10/10/24 19:52 Pulse Ox 97 10/10/24 19:52 FiO2 Intake & Output 10/10/24 10/10/24 10/11/24 06:59 18:59 06:59 Intake Total 721.780 9160.913 Output Total 500 1400 350 Balance -210.629 -300.087 -350 Weight 53.8 kg Intake: Intake, IV Titration 49.371 79.913 Amount Heparin Sod,Pork in 0.45% 49.371 79.913 NaCl 25,000 unit In 0.45 % NaCl 1 250ml.bag @ 12 UNITS/KG/HR 6.151 mls/hr IV .Q24H [facility] Rx#: [id number] Oral 240 1020 Output: Urine 500 1400 350 Other: Voiding Method Toilet External Catheter External Catheter - Labs CBC & Chem 7: 10/10/24 06:26 10/10/24 06:26 Labs: Abnormal Lab Results - Last 24 Hours (Table) 10/09/24 10/10/24 10/10/24 Range/Units 23:49 06:26 06:26 WBC 15.82 H (4.50-10.00) 10*3/uL MCV 97.9 H (80.0-97.0) fL MCHC 31.8 L (32.0-37.0) g/dL MPV 12.7 H (9.5-12.2) fL Immature Gran # 0.17 H (0.00-0.04) 10*3/uL Neutrophils # 11.77 H (1.80-7.70) 10*3/uL Monocytes # 1.90 H (0.20-1.00) 10*3/uL Eosinophils # 0.03 L (0.04-0.35) 10*3/uL APTT 41.3 H (22.0-30.0) sec Sodium 136 L (137-145) mmol/L Chloride 96 L (98-107) mmol/L Carbon Dioxide 32 H (22-30) mmol/L BUN 31 H (7-17) mg/dL Creatinine 1.06 H (0.52-1.04) mg/dL Glucose 122 H (74-99) mg/dL Total Bilirubin 2.6 H (0.2-1.3) mg/dL AST 66 H (14-36) U/L ALT 44 H (4-34) U/L Alkaline Phosphatase 146 H (38-126) U/L Total Protein 6.1 L (6.3-8.2) g/dL Albumin 3.3 L (3.5-5.0) g/dL 10/10/24 10/10/24 Range/Units 06:26 17:07 WBC (4.50-10.00) 10*3/uL MCV (80.0-97.0) fL MCHC (32.0-37.0) g/dL MPV (9.5-12.2) fL Immature Gran # (0.00-0.04) 10*3/uL Neutrophils # (1.80-7.70) 10*3/uL Monocytes # (0.20-1.00) 10*3/uL Eosinophils # (0.04-0.35) 10*3/uL APTT 36.0 H 36.9 H (22.0-30.0) sec Sodium (137-145) mmol/L Chloride (98-107) mmol/L Carbon Dioxide (22-30) mmol/L BUN (7-17) mg/dL Creatinine (0.52-1.04) mg/dL Glucose (74-99) mg/dL Total Bilirubin (0.2-1.3) mg/dL AST (14-36) U/L ALT (4-34) U/L Alkaline Phosphatase (38-126) U/L Total Protein (6.3-8.2) g/dL Albumin (3.5-5.0) g/dL
[2024-10-11 05:13] LABS: Basophils # (A) 0.06 10*3/uL (0.00-0.10); Basophils % (A) 0.5 %; Eosinophils # (A) 0.05 10*3/uL (0.04-0.35); Eosinophils % (A) 0.4 %; HCT 38.6 % (37.2-46.3); HGB 12.8 g/dL (12.0-15.0); Lymphocytes # (A) 1.93 10*3/uL (0.90-5.00); Lymphocytes % (A) 14.9 %; MCH 31.8 pg (27.0-32.0); MCHC 33.2 g/dL (32.0-37.0); MCV 95.8 fL (80.0-97.0); Monocytes # (A) 1.60 10*3/uL (0.20-1.00); Monocytes % (A) 12.4 %; Neutrophils # (A) 9.05 10*3/uL (1.80-7.70); Neutrophils % (A) 69.9 %; Platelet Count 179 10*3/uL (140-440); RBC 4.03 10*6/uL (4.10-5.20); RDW 17.2 % (11.5-14.5); WBC 12.93 10*3/uL (4.50-10.00)
[2024-10-11 05:32] LABS: ALT 34 U/L (4-34); AST 43 U/L (14-36); African American GFR (CKD) 55 (>60 ml/min/1.73 sqM); Albumin 2.9 g/dL (3.5-5.0); Alkaline Phosphatase 134 U/L (38-126); Anion Gap 7 mmol/L; Blood Urea Nitrogen 34 mg/dL (7-17); Calcium 9.0 mg/dL (8.4-10.2); Carbon Dioxide 32 mmol/L (22-30); Chloride 92 mmol/L (98-107); Glucose 102 mg/dL (74-99); Magnesium 1.8 mg/dL (1.6-2.3); Non-African American GFR(CKD) 47 (>60 ml/min/1.73 sqM); Potassium 3.8 mmol/L (3.5-5.1); Sodium 131 mmol/L (137-145); Total Protein 5.6 g/dL (6.3-8.2)
--- NOTE | 2024-10-11 13:25 | P.PN ---
Subjective Progress Note Date: 10/11/24 This is a pleasant 84-year-old female patient with a past medical history of hypertension, hyperlipidemia, atrial fibrillation, status post cardioversion, and CAD. She was recently hospitalized at [facility] for mild heart failure with preserved ejection fraction exacerbation as well as A-fib with RVR and mild troponin elevation. At that time she underwent cardioversion and was discharged to [facility]. This admission she presented because of left- sided chest pain radiating to the jaw, chest heaviness and tachycardia. The on admission EKG showed atrial flutter with RVR. She subsequently converted to sinus mechanism. Troponins were found to be elevated peaking at 9.9. She is currently chest pain-free. Denies any current complaints. Her breathing is feeling better. Labs show elevated bilirubin. PHYSICAL EXAMINATION: Neck: Brisk carotid upstroke, no jugular venous distention. Lungs: Poor inspiratory effort, mild bibasilar crackles Heart: Regular S1, S2, systolic murmur Abdomen: Soft nontender, positive bowel sounds. Extremities: 1+ lower extremity edema with chronic skin changes and erythema in bilateral lower extremity. Neuro: Alert, oriented, no focal deficits. ASSESSMENT: # Atrial flutter with 2 is to 1 conduction, currently rate controlled. RVR on admission with symptoms of chest pressure and rate related EKG changes with diffuse ST depression # Paroxysmal atrial fibrillation with recent cardioversion at [facility] # Mild HFpEF exacerbation # NSTEMI # Hypokalemia # CKD PLAN: Detailed discussion with the patient regarding possibility of coronary angiography versus medical management discussed rationale for cardiac catheterization including risks and benefits. At this time the patient does not wish to proceed with any invasive workup. Patient will require further workup in regards to the elevated bilirubin. We will continue to follow the patient and provide further recommendations accordingly. PLANT DIRECTOR note has been reviewed, I agree with a documented findings and plan of care. Patient was seen and examined. Objective - Vital Signs Vital signs: Vital Signs Temp 97.8 F 10/11/24 08:30 Pulse 63 10/11/24 08:30 Resp 18 10/11/24 08:30 BP 98/56 10/11/24 08:30 Pulse Ox 99 10/11/24 08:30 FiO2 Intake & Output 10/10/24 10/11/24 10/11/24 18:59 06:59 18:59 Intake Total 1099.913 120 400 Output Total 1400 600 Balance -300.087 -480 400 Weight 50 kg Intake: Intake, IV Titration 79.913 Amount Heparin Sod,Pork in 0.45% 79.913 NaCl 25,000 unit In 0.45 % NaCl 1 250ml.bag @ 12 UNITS/KG/HR 6.151 mls/hr IV .Q24H [facility] Rx#: [id number] Oral 1020 120 400 Output: Urine 1400 600 Other: Voiding Method External Catheter External Catheter External Catheter # Bowel Movements 1 - Labs CBC & Chem 7: 10/11/24 04:43 10/11/24 04:43 Labs: Abnormal Lab Results - Last 24 Hours (Table) 10/10/24 10/11/24 10/11/24 Range/Units 17:07 00:11 04:43 WBC 12.93 H (4.50-10.00) 10*3/uL RBC 4.03 L (4.10-5.20) 10*6/uL MPV 12.9 H (9.5-12.2) fL Immature Gran # 0.24 H (0.00-0.04) 10*3/uL Neutrophils # 9.05 H (1.80-7.70) 10*3/uL Monocytes # 1.60 H (0.20-1.00) 10*3/uL APTT 36.9 H 43.0 H (22.0-30.0) sec Sodium (137-145) mmol/L Chloride (98-107) mmol/L Carbon Dioxide (22-30) mmol/L BUN (7-17) mg/dL Creatinine (0.52-1.04) mg/dL Glucose (74-99) mg/dL Total Bilirubin (0.2-1.3) mg/dL AST (14-36) U/L Alkaline Phosphatase (38-126) U/L Total Protein (6.3-8.2) g/dL Albumin (3.5-5.0) g/dL 10/11/24 Range/Units 04:43 WBC (4.50-10.00) 10*3/uL RBC (4.10-5.20) 10*6/uL MPV (9.5-12.2) fL Immature Gran # (0.00-0.04) 10*3/uL Neutrophils # (1.80-7.70) 10*3/uL Monocytes # (0.20-1.00) 10*3/uL APTT (22.0-30.0) sec Sodium 131 L (137-145) mmol/L Chloride 92 L (98-107) mmol/L Carbon Dioxide 32 H (22-30) mmol/L BUN 34 H (7-17) mg/dL Creatinine 1.08 H (0.52-1.04) mg/dL Glucose 102 H (74-99) mg/dL Total Bilirubin 2.2 H (0.2-1.3) mg/dL AST 43 H (14-36) U/L Alkaline Phosphatase 134 H (38-126) U/L Total Protein 5.6 L (6.3-8.2) g/dL Albumin 2.9 L (3.5-5.0) g/dL
--- NOTE | 2024-10-11 18:46 | P.PN ---
Subjective Progress Note Date: 10/11/24 HISTORY OF PRESENT ILLNESS: This is an 84-year-old female with a previous medical history signi ficant for hypertension and hypertensive cardiovascular disease, mixed hyperlipidemia, paroxysmal atrial fibrillation, coronary artery disease involving hoopa artery, allergic rhinitis, hypothyroidism, mitral regurgitation and aortic insufficiency, patient was recently hospitalized at [facility] for what appears to be an acute diastolic heart failure due to atrial fibrillation with rapid ventricular response, she also was diagnosed with non-ST elevation myocardial infarction at that time she underwent DC cardioversion she was sent to [facility] for physical therapy rehabilitation patient was doing just fine, I saw her the [id number] about a day before yesterday, and she was do ing much much better, she was planning to get out of the assisted yesterday she was sitting up and developed to have a significant left-sided chest pain radiating to the jaw down the arm she was given 3 nitroglycerin and her blood pressure dropped, her heart rate went to 240, she developed to have an atrial fibrillation with rapid regular response she was sent to the emergency department at [facility] she was found to be in atrial fibrillation with RVR, at the same time her troponin was slightly elevated however the second troponin came back elevated at 4 patient was ruled into acute non-ST elevation AR, she was started on heparin drip, she was also started on metoprolol 25 mg or ally twice every day, she is currently back in sinus rhythm, she appears to be somewhat hypotensive, she did receive IV fluid in the form of normal saline at 75 cc an hour, I will keep that until reevaluate the patient with a chest x-ray 10/09: Patient sitting up in the chair is feeling much better today, she is not on any oxygen at this point in time, her oxygen saturation is perfectly fine, she has no chest pain so far no shortness of breath, no orthopnea, no edema both lower extremities much better than yesterday, she continues to be on heparin drip, patient did have a non-ST elevation myocardial infarction along with an acute diastolic heart failure that she has been recovering from the very well, we will continue current treatment plan, follow the patient very closely, no left heart catheterization is planned by cardiology so far 10/10: Patient is doing much better today, her oxygenation 99% room air, she denies any chest pain, shortness of breath at this time, she has no abdominal pain, nausea vomiting or diarrhea, she appears to be at baseline, we will try to transfer the patient back to [facility] tomorrow morning. I will obtain a chest x- ray to make sure the resolution of CHF. 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 she did not want to think about heart catheterization at this point in time, we will revisit the patient again tomorrow morning, she does appear to have an elevated bilirubin level at 2.2, we will obtain ultrasound of the abdomen for further evaluation recommendation, this is likely related to the use of amiodarone we will hold amiodarone for now, discussed with cardiology, continue other treatment plan, continue physical therapy evaluation, likely the patient will be transferred back to [facility] if the decision was not to pursue any left heart catheterization at this point in time hopefully in the next 24 hours. REVIEW OF SYSTEMS: Constitutional: No documented fever, no chills, no night sweats. No weight change. positive for weakness, fatigue or lethargy. No daytime sleepiness. EENT: No headache. No blurred vision or double vision, no loss of vision. No loss of Hearing, no ringing in the ears, no dizziness. No nasal drainage or congestion. No epistaxis. No sore throat. Lungs: positive for shortness of breath, no cough, no sputum production. No wheezing. Reports dyspnea with activity. Cardiovascular: positive for chest pain, positive for lower extremity edema. positive for palpitations. No paroxysmal nocturnal dyspnea. positive for orthopnea. No lightheadedness or dizziness. No syncopal episodes. Abdominal: Reports abdominal pain. positive for nausea, vomiting. No diarrhea. No constipation. No bloody or tarry stools reports loss of appetite. Genitourinary: No dysuria, increased frequency, urgency. No urinary retention. Musculoskeletal: No myalgias. No muscle weakness, no gait dysfunction, no frequent falls. No back pain. No neck pain. Integumentary: No wounds, no lesions. No rash or pruritus. No unusual bruising. No change in hair or nails. Neurologic: No aphasia. No facial droop. No change in mentation. No head injury. No headache. No paralysis. No paresthesia. Psychiatric: No depression. positive for anxiety. No mood swings. Endocrine: No abnormal blood sugars. No weight change. PHYSICAL EXAMINATION: General: 84-year-old female laying down in bed in no respiratory distress HEENT: Head is atraumatic, normocephalic, pupils were equal round reactive to light and recommendation, extraocular muscle movement were intact, sclera nonicteric, conjunctivae were pale, mucous membranes of the mouth are somewhat dry. Neck: Supple, positive for JVP, decreased carotid upstroke bilaterally, no lymphadenopathy. Chest: Decreased breath sounds at the bases, few rhonchi, no expiratory wheezes, no chest wall tenderness, no intercostal retractions. Heart: First heart sound is normal, second heart sounds normal systolic ejection murmur 2/6 again the left sternal border. Abdomen: Soft, nontender, nondistended, positive bowel sounds. Extremities: There is +1 edema no calf tenderness DP +2 bilaterally. Neurologic examination: Patient is awake alert and oriented x3, cranial nerves II-12 appear grossly intact, muscle power were 4 out of 5 in upper extremities and 3 out of 5 in bilateral lower extremities, deep tendon reflexes normal bilaterally. ASSESSMENT AND PLAN: 1. Atrial flutter with 2-1 block and paroxysmal atrial fibrillation currently in sinus rhythm continue patient on heparin drip, transition to Xarelto 15 mg orally once every day, continue metoprolol 25 mg orally twice every day, discontinue amiodarone, will revisit again tomorrow morning to see if the patient is in agreement to have left heart catheterization. 2. Non-ST elevation myocardial infarction. Continue patient on aspirin 81 mg once every day, heparin drip, continue metoprolol 25 mg orally twice every day, continue atorvastatin 40 mg once every day, patient did not want any heart catheterization today we will reevaluate tomorrow morning. 3. Hypertension and hypertensive cardiovascular disease. Continue patient on metoprolol 25 mg orally twice every day. Monitor the patient blood pressure very closely, hold for systolic blood pressure less than 100. 4. Hyperlipidemia. Continue the patient on atorvastatin 40 mg orally once every day monitor lipid panel, keep LDL 55-70. 5. Paroxysmal atrial fibrillation currently in sinus rhythm continue treatment as in Paragraph#1. 6. Hypothyroidism. Currently not taking any medication for replacement monitor the patient TSH and free T4. 7. Acute on chronic diastolic heart failure. we will maintain the patient on metoprolol 25 mg orally twice every day, continue torsemide 20 mg orally once every day, continue spironolactone 12.5 mg once every day continue Farxiga 10 mg orally once every day, monitor the patient daily weight. 8. Hypokalemia . Will start potassium chloride 20 mill equivalents orally twice every day. 9. Chronic kidney disease stage IIIa. Monitor the patient input and output and avoid nephrotoxins. Continue torsemide 20 mg once every day, Farxiga 10 mg orally once every day. 10. Osteopenia of the right hip. Stable at this time. 11. Medical debility. Physical therapy evaluation, likely going back to [facility]. 12. DVT prophylaxis. Currently on heparin drip will transition into Xarelto 15 mg orally once every day. 13. GI prophylaxis. Continue patient on Protonix 40 mg orally once every day. 14. elevated liver function test, check ultrasound of the abdomen, discontinue amiodarone. 15. Likely back to [facility] if no plan for left heart catheterization tomorrow morning. Objective - Vital Signs Vital signs: Vital Signs Temp 97.4 F L 10/11/24 04:00 Pulse 59 L 10/11/24 04:00 Resp 16 10/11/24 04:00 BP 85/50 10/11/24 04:00 Pulse Ox 96 10/11/24 04:00 FiO2 Intake & Output 10/10/24 10/11/24 10/11/24 18:59 06:59 18:59 Intake Total 1099.913 120 Output Total 1400 600 Balance -300.087 -480 Weight 50 kg Intake: Intake, IV Titration 79.913 Amount Heparin Sod,Pork in 0.45% 79.913 NaCl 25,000 unit In 0.45 % NaCl 1 250ml.bag @ 12 UNITS/KG/HR 6.151 mls/hr IV .Q24H [facility] Rx#: [id number] Oral 1020 120 Output: Urine 1400 600 Other: Voiding Method External Catheter External Catheter - Labs CBC & Chem 7: 10/11/24 04:43 10/11/24 04:43 Labs: Abnormal Lab Results - Last 24 Hours (Table) 10/10/24 10/11/24 10/11/24 Range/Units 17:07 00:11 04:43 WBC 12.93 H (4.50-10.00) 10*3/uL RBC 4.03 L (4.10-5.20) 10*6/uL MPV 12.9 H (9.5-12.2) fL Immature Gran # 0.24 H (0.00-0.04) 10*3/uL Neutrophils # 9.05 H (1.80-7.70) 10*3/uL Monocytes # 1.60 H (0.20-1.00) 10*3/uL APTT 36.9 H 43.0 H (22.0-30.0) sec Sodium (137-145) mmol/L Chloride (98-107) mmol/L Carbon Dioxide (22-30) mmol/L BUN (7-17) mg/dL Creatinine (0.52-1.04) mg/dL Glucose (74-99) mg/dL Total Bilirubin (0.2-1.3) mg/dL AST (14-36) U/L Alkaline Phosphatase (38-126) U/L Total Protein (6.3-8.2) g/dL Albumin (3.5-5.0) g/dL / Range/Units 04:43 WBC (4.50-10.00) 10*3/uL RBC (4.10-5.20) 10*6/uL MPV (9.5-12.2) fL Immature Gran # (0.00-0.04) 10*3/uL Neutrophils # (1.80-7.70) 10*3/uL Monocytes # (0.20-1.00) 10*3/uL APTT (22.0-30.0) sec Sodium 131 L (137-145) mmol/L Chloride 92 L (98-107) mmol/L Carbon Dioxide 32 H (22-30) mmol/L BUN 34 H (7-17) mg/dL Creatinine 1.08 H (0.52-1.04) mg/dL Glucose 102 H (74-99) mg/dL Total Bilirubin 2.2 H (0.2-1.3) mg/dL AST 43 H (14-36) U/L Alkaline Phosphatase 134 H (38-126) U/L Total Protein 5.6 L (6.3-8.2) g/dL Albumin 2.9 L (3.5-5.0) g/dL
[2024-10-12 07:27] LABS: Basophils # (A) 0.09 10*3/uL (0.00-0.10); Basophils % (A) 0.8 %; Eosinophils # (A) 0.08 10*3/uL (0.04-0.35); Eosinophils % (A) 0.7 %; HCT 38.0 % (37.2-46.3); HGB 12.4 g/dL (12.0-15.0); Lymphocytes # (A) 1.91 10*3/uL (0.90-5.00); Lymphocytes % (A) 16.3 %; MCH 31.3 pg (27.0-32.0); MCHC 32.6 g/dL (32.0-37.0); MCV 96.0 fL (80.0-97.0); Monocytes # (A) 1.48 10*3/uL (0.20-1.00); Monocytes % (A) 12.7 %; Neutrophils # (A) 7.67 10*3/uL (1.80-7.70); Neutrophils % (A) 65.6 %; Platelet Count 189 10*3/uL (140-440); RBC 3.96 10*6/uL (4.10-5.20); RDW 17.0 % (11.5-14.5); WBC 11.69 10*3/uL (4.50-10.00)
[2024-10-12 07:42] LABS: ALT 33 U/L (4-34); AST 41 U/L (14-36); African American GFR (CKD) 52 (>60 ml/min/1.73 sqM); Albumin 2.8 g/dL (3.5-5.0); Alkaline Phosphatase 147 U/L (38-126); Anion Gap 5 mmol/L; Blood Urea Nitrogen 36 mg/dL (7-17); Calcium 8.5 mg/dL (8.4-10.2); Carbon Dioxide 31 mmol/L (22-30); Chloride 94 mmol/L (98-107); Glucose 95 mg/dL (74-99); Non-African American GFR(CKD) 45 (>60 ml/min/1.73 sqM); Potassium 3.7 mmol/L (3.5-5.1); Sodium 130 mmol/L (137-145); Total Protein 5.5 g/dL (6.3-8.2)
--- NOTE | 2024-10-12 08:20 | US ---
EXAMINATION TYPE: US abdomen complete DATE OF EXAM: 10/12/2024 COMPARISON: Chest XR 10/10/24 CLINICAL INDICATION: Female, 84 years old with history of elevated LFTs TECHNIQUE: Grayscale and color Doppler imaging of the abdomen was performed. FINDINGS: EXAM MEASUREMENTS: Liver Length: 16.9 cm Gallbladder Wall: 0.2 cm CBD: 0.7 cm, color Doppler imaging was utilized to isolate the common bile duct for measurement. Spleen: 8.7 cm Right Kidney: 8.6 x 4.0 x 5.7 cm Left Kidney: 8.8 x 4.2 x 4.4 cm Pancreas: Head and tail obscured by overlying bowel gas, main pancreatic duct at 2.6 mm, upper limit s of normal in caliber. Liver: wnl, no dilated ducts, masses or cysts. Gallbladder: wnl Evidence for sonographic Garcia's sign: No CBD: prominent Spleen: wnl Right Kidney: There is a 6.5 x 3.7 x 5.4cm lobulated cystic structure at the upper pole of the kidne y showing some dependent debris. No hydronephrosis or calculi are seen Left Kidney: 1.7 x 1.3 x 1.7 cm avascular echogenic cortical lesion at the midpole may represent bianca ctional parenchymal defect vs. angiomyolipoma vs. other. No hydronephrosis or calculi are seen Upper IVC: Appears somewhat distended. Abd Aorta: mild atherosclerotic Marine Chronometer Assembler notes: Exam limited by patient condition, overlying bowel gas. Pericardial and right pleural effusion. IMPRESSION: 1. A lobulated cystic-appearing lesion at the upper pole of the left kidney measuring up to 6.5 cm co ntaining some layering internal debris. Correlate for the possibility of a hemorrhagic cyst or infect ed cyst. Consider contrast-enhanced renal mass protocol CT for further characterization. 2. 1.7 cm echogenic cortical lesion at the midpole of the right kidney. Some differential considerati ons include cortical scar with interposed fat, AML, and RCC. This can also be evaluated on the CT. 3. Small right pericardial effusion and small pericardial effusion noted. Given IVC distention, corre late for fluid overload state. 4. No gallstones. Bile duct caliber of 7 mm may be acceptable given patient's age. [facility], Workstation: [id number], 10/12/2024 8:18 AM
--- NOTE | 2024-10-12 09:16 | P.PN ---
Subjective Progress Note Date: 10/12/24 This is a pleasant 84-year-old female patient with a past medical history of hypertension, hyperlipidemia, atrial fibrillation, status post cardioversion, and CAD. She was recently hospitalized at [facility] for mild heart failure with preserved ejection fraction exacerbation as well as A-fib with RVR and mild troponin elevation. At that time she underwent cardioversion and was discharged to [facility]. This admission she presented because of left- sided chest pain radiating to the jaw, chest heaviness and tachycardia. The on admission EKG showed atrial flutter with RVR. She subsequently converted to sinus mechanism. Troponins were found to be elevated peaking at 9.9. She is currently chest pain-free. Denies any current complaints. Her breathing is feeling better. Labs show elevated bilirubin. 10/12/2024 Patient was seen and examined resting comfortably in bed. She has had no complaints of chest discomfort. Her breathing is stable. Labs this morning showed a bilirubin of 1.9. She underwent abdominal ultrasound this morning. PHYSICAL EXAMINATION: Neck: Brisk carotid upstroke, no jugular venous distention. Lungs: Poor inspiratory effort, mild bibasilar crackles Heart: Regular S1, S2, systolic murmur Abdomen: Soft nontender, positive bowel sounds. Extremities: 1+ lower extremity edema with chronic skin changes and erythema in bilateral lower extremity. Neuro: Alert, oriented, no focal deficits. ASSESSMENT: # Atrial flutter with 2 is to 1 conduction, currently rate controlled. RVR on admission with symptoms of chest pressure and rate related EKG changes with diffuse ST depression # Paroxysmal atrial fibrillation with recent cardioversion at [facility] # Mild HFpEF exacerbation # NSTEMI # Hypokalemia # CKD PLAN: Discussed again with the patient regarding possibility of coronary angiography versus medical management discussed rationale for cardiac catheterization including risks and benefits. The patient still does not wish to proceed with any invasive workup. Await results of ultrasound. We will continue to follow the patient and provide further recommendations accordingly. SETTLEMENT PROCESSOR note has been reviewed, I agree with a documented findings and plan of care. Patient was seen and examined. Objective - Vital Signs Vital signs: Vital Signs Temp 97.4 F L 10/12/24 04:00 Pulse 60 10/12/24 04:00 Resp 16 10/12/24 04:00 BP 103/54 10/12/24 04:00 Pulse Ox 96 10/12/24 04:00 FiO2 Intake & Output 10/11/24 10/12/24 10/12/24 18:59 06:59 18:59 Intake Total 570.087 6.937 Output Total 1500 240 Balance -929.913 -233.063 Weight 50.5 kg Intake: Intake, IV Titration 170.087 6.937 Amount Heparin Sod,Pork in 0.45% 170.087 6.937 NaCl 25,000 unit In 0.45 % NaCl 1 250ml.bag @ 12 UNITS/KG/HR 6.151 mls/hr IV .Q24H [facility] Rx#: [id number] Oral 400 Output: Urine 1500 240 Other: Voiding Method External Catheter External Catheter # Bowel Movements 1 - Labs CBC & Chem 7: 10/12/24 05:57 10/12/24 05:57 Labs: Abnormal Lab Results - Last 24 Hours (Table) 10/12/24 10/12/24 10/12/24 Range/Units 00:36 05:57 05:57 WBC 11.69 H (4.50-10.00) 10*3/uL RBC 3.96 L (4.10-5.20) 10*6/uL MPV 13.0 H (9.5-12.2) fL Immature Gran # 0.46 H (0.00-0.04) 10*3/uL Monocytes # 1.48 H (0.20-1.00) 10*3/uL APTT 36.3 H (22.0-30.0) sec Sodium 130 L (137-145) mmol/L Chloride 94 L (98-107) mmol/L Carbon Dioxide 31 H (22-30) mmol/L BUN 36 H (7-17) mg/dL Creatinine 1.12 H (0.52-1.04) mg/dL Total Bilirubin 1.9 H (0.2-1.3) mg/dL AST 41 H (14-36) U/L Alkaline Phosphatase 147 H (38-126) U/L Total Protein 5.5 L (6.3-8.2) g/dL Albumin 2.8 L (3.5-5.0) g/dL
--- NOTE | 2024-10-12 16:43 | P.GSCN ---
History of Present Illness Consult date: 10/12/24 Reason for Consult: Right renal mass, left cyst History of present illness: This is an 84-year-old female admitted to the hospital with chest pain and A- fib. Urology is consulted for incidental finding of a right renal mass and a left cyst. Patient underwent an abdominal ultrasound for elevated LFTs, ultrasound showed evidence of a 6.5 cm complex cyst in the left kidney, and a 1.7 cm right-sided echogenic focus within the kidney. She denies any flank pain gross hematuria or any voiding dysfunction. No previous history of kidney stone s or previous renal surgeries. No known family history of renal malignancies. She indicated this was seen on previous imaging when she was in [place], and did have surveillance ultrasound done at that time which showed no evidence of growth or changes. Review of Systems - Constitutional Denies fever, Denies weight loss - EENT Ears, nose, mouth and throat: Denies dysphagia - Cardiovascular Denies chest pain, Denies shortness of breath - Respiratory Denies cough, Denies 7 - Gastrointestinal Reports as per HPI Past Medical History Past Medical History: Coronary Artery Disease (CAD), Heart Failure, Hyperlipidemia Additional Past Medical History / Comment(s): CKD stage 3, low sodium and low potassium, NSTEMI 07/2024 History of Any Multi-Drug Resistant Organisms: None Reported Past Surgical History: No Surgical Hx Reported Smoking Status: Never smoker Medications and Allergies Home Medications Medication Instructions Recorded Confirmed Type Ammonium Lactate Lotion 1 applic TOPICAL Q12H 10/08/24 10/08/24 History [Lac-Hydrin 12% Lotion] Ascorbic Acid [Vitamin C] 500 mg PO BID 10/08/24 10/08/24 History Aspirin 81 mg PO DAILY 10/08/24 10/08/24 History Atorvastatin [Lipitor] 40 mg PO HS 10/08/24 10/08/24 History Dapagliflozin Propanediol [Farxiga] 10 mg PO DAILY 10/08/24 10/08/24 History Magnesium Hydroxide [Milk of 7,200 mg PO DAILY PRN 10/08/24 10/08/24 History Magnesia Concentrate] Menthol-Zinc Oxide Oint 1 applic TOPICAL BID 10/08/24 10/08/24 History [Calmoseptine Ointment] Metoprolol Tartrate [Lopressor] 25 mg PO BID 10/08/24 10/08/24 History Multivitamin + Minerals 1 tab PO DAILY 10/08/24 10/08/24 History Nitro-Time Er 2.5mg 2.5 mg PO BID 10/08/24 10/08/24 History Oyster Shell 500mg 500 mg PO HS 10/08/24 10/08/24 History Pantoprazole Sodium [Protonix] 40 mg PO DAILY 10/08/24 10/08/24 History Potassium Chloride [Klor-Con M20] 20 meq PO DAILY 10/08/24 10/08/24 History Rivaroxaban [Xarelto] 15 mg PO HS 10/08/24 10/08/24 History Torsemide [Soaanz] 40 mg PO DAILY 10/08/24 10/08/24 History bisacodyL [Dulcolax] 10 mg RECTAL DAILY PRN 10/08/24 10/08/24 History metOLazone 2.5 mg PO DAILY 10/08/24 10/08/24 History Allergies Allergy/AdvReac Type Severity Reaction Status Date / Time diatrizoic acid Allergy Unknown Verified 10/08/24 09:12 Penicillins Allergy Anaphylaxis Verified 10/08/24 09:12 prednisone Allergy Unknown Verified 10/08/24 09:12 shellfish derived Allergy Anaphylaxis Verified 10/08/24 09:12 Sulfa (Sulfonamide Allergy Unknown Verified 10/08/24 09:12 Antibiotics) Iodinated Contrast Media AdvReac Nausea & Verified 10/08/24 09:12 Vomiting & Diarrhea Surgical - Exam Vital Signs Temp Pulse Resp BP Pulse Ox 98.1 F 135 H 16 96/62 97 10/07/24 20:52 10/07/24 20:52 10/07/24 20:52 10/07/24 20:52 10/07/24 20:52 - General no distress, no pain - Eyes normal ocular movement, no pale - ENT normal nares, normal mucosa - Respiratory normal expansion, normal respiratory effort - Abdomen Abdomen: soft, non tender, no distended Results - Labs 10/12/24 05:57 10/12/24 05:57 Abnormal Lab Results - Last 24 Hours (Table) 10/12/24 10/12/24 10/12/24 Range/Units 00:36 05:57 05:57 WBC 11.69 H (4.50-10.00) 10*3/uL RBC 3.96 L (4.10-5.20) 10*6/uL MPV 13.0 H (9.5-12.2) fL Immature Gran # 0.46 H (0.00-0.04) 10*3/uL Monocytes # 1.48 H (0.20-1.00) 10*3/uL APTT 36.3 H (22.0-30.0) sec Sodium 130 L (137-145) mmol/L Chloride 94 L (98-107) mmol/L Carbon Dioxide 31 H (22-30) mmol/L BUN 36 H (7-17) mg/dL Creatinine 1.12 H (0.52-1.04) mg/dL Total Bilirubin 1.9 H (0.2-1.3) mg/dL AST 41 H (14-36) U/L Alkaline Phosphatase 147 H (38-126) U/L Total Protein 5.5 L (6.3-8.2) g/dL Albumin 2.8 L (3.5-5.0) g/dL 10/12/24 Range/Units 08:29 WBC (4.50-10.00) 10*3/uL RBC (4.10-5.20) 10*6/uL MPV (9.5-12.2) fL Immature Gran # (0.00-0.04) 10*3/uL Monocytes # (0.20-1.00) 10*3/uL APTT 45.6 H (22.0-30.0) sec Sodium (137-145) mmol/L Chloride (98-107) mmol/L Carbon Dioxide (22-30) mmol/L BUN (7-17) mg/dL Creatinine (0.52-1.04) mg/dL Total Bilirubin (0.2-1.3) mg/dL AST (14-36) U/L Alkaline Phosphatase (38-126) U/L Total Protein (6.3-8.2) g/dL Albumin (3.5-5.0) g/dL Diabetes panel 10/12/24 Range/Units 05:57 Sodium 130 L (137-145) mmol/L Potassium 3.7 (3.5-5.1) mmol/L Chloride 94 L (98-107) mmol/L Carbon Dioxide 31 H (22-30) mmol/L BUN 36 H (7-17) mg/dL Creatinine 1.12 H (0.52-1.04) mg/dL Glucose 95 (74-99) mg/dL Calcium 8.5 (8.4-10.2) mg/dL AST 41 H (14-36) U/L ALT 33 (4-34) U/L Alkaline Phosphatase 147 H (38-126) U/L Total Protein 5.5 L (6.3-8.2) g/dL Albumin 2.8 L (3.5-5.0) g/dL Calcium panel 10/12/24 Range/Units 05:57 Calcium 8.5 (8.4-10.2) mg/dL Albumin 2.8 L (3.5-5.0) g/dL Pituitary panel 10/12/24 Range/Units 05:57 Sodium 130 L (137-145) mmol/L Potassium 3.7 (3.5-5.1) mmol/L Chloride 94 L (98-107) mmol/L Carbon Dioxide 31 H (22-30) mmol/L BUN 36 H (7-17) mg/dL Creatinine 1.12 H (0.52-1.04) mg/dL Glucose 95 (74-99) mg/dL Calcium 8.5 (8.4-10.2) mg/dL Adrenal panel 10/12/24 Range/Units 05:57 Sodium 130 L (137-145) mmol/L Potassium 3.7 (3.5-5.1) mmol/L Chloride 94 L (98-107) mmol/L Carbon Dioxide 31 H (22-30) mmol/L BUN 36 H (7-17) mg/dL Creatinine 1.12 H (0.52-1.04) mg/dL Glucose 95 (74-99) mg/dL Calcium 8.5 (8.4-10.2) mg/dL Total Bilirubin 1.9 H (0.2-1.3) mg/dL AST 41 H (14-36) U/L ALT 33 (4-34) U/L Alkaline Phosphatase 147 H (38-126) U/L Total Protein 5.5 L (6.3-8.2) g/dL Albumin 2.8 L (3.5-5.0) g/dL Assessment and Plan Assessment: 84-year-old female with incidental finding of a complex left renal cyst and a r ight sided renal mass. . A Given patient's comorbidities and age she is unlikely to require any surgical intervention for her lesions. She indicated the right sided renal mass was seen on previous imaging when she was in [place], and she had follow-up done over there which showed no growth. She is not interested in any aggressive measures, this is reasonable given her age and comorbidity. At this point given the small size of the lesion even if it is malignant and the potential of metastasis is fairly low. At this point I would not recommend any further evaluation of this lesion
--- NOTE | 2024-10-13 07:23 | P.PN ---
Subjective Progress Note Date: 10/12/24 HISTORY OF PRESENT ILLNESS: This is an 84-year-old female with a previous medical history signi ficant for hypertension and hypertensive cardiovascular disease, mixed hyperlipidemia, paroxysmal atrial fibrillation, coronary artery disease involving [place] artery, allergic rhinitis, hypothyroidism, mitral regurgitation and aortic insufficiency, patient was recently hospitalized at [facility] for what appears to be an acute diastolic heart failure due to atrial fibrillation with rapid ventricular response, she also was diagnosed with non-ST elevation myocardial infarction at that time she underwent DC cardioversion she was sent to [facility] for physical therapy rehabilitation patient was doing just fine, I saw her the [id number] about a day before yesterday, and she was do ing much much better, she was planning to get out of the skilled nursing yesterday she was sitting up and developed to have a significant left-sided chest pain radiating to the jaw down the arm she was given 3 nitroglycerin and her blood pressure dropped, her heart rate went to 240, she developed to have an atrial fibrillation with rapid regular response she was sent to the emergency department at [facility] she was found to be in atrial fibrillation with RVR, at the same time her troponin was slightly elevated however the second troponin came back elevated at 4 patient was ruled into acute non-ST elevation ID, she was started on heparin drip, she was also started on metoprolol 25 mg or ally twice every day, she is currently back in sinus rhythm, she appears to be somewhat hypotensive, she did receive IV fluid in the form of normal saline at 75 cc an hour, I will keep that until reevaluate the patient with a chest x-ray 10/09: Patient sitting up in the chair is feeling much better today, she is not on any oxygen at this point in time, her oxygen saturation is perfectly fine, she has no chest pain so far no shortness of breath, no orthopnea, no edema both lower extremities much better than yesterday, she continues to be on heparin drip, patient did have a non-ST elevation myocardial infarction along with an acute diastolic heart failure that she has been recovering from the very well, we will continue current treatment plan, follow the patient very closely, no left heart catheterization is planned by cardiology so far 10/10: Patient is doing much better today, her oxygenation 99% room air, she denies any chest pain, shortness of breath at this time, she has no abdominal pain, nausea vomiting or diarrhea, she appears to be at baseline, we will try to transfer the patient back to [facility] tomorrow morning. I will obtain a chest x- ray to make sure the resolution of CHF. 10/11: Patient is sitting up in chair in no apparent distress, she is feeling a bit better today than yesterday, she continues to be on heparin drip, she had a long conversation with the tire fabric impregnating range tender today she did not want to think about heart catheterization at this point in time, we will revisit the patient again tomorrow morning, she does appear to have an elevated bilirubin level at 2.2, we will obtain ultrasound of the abdomen for further evaluation recommendation, this is likely related to the use of amiodarone we will hold amiodarone for now, discussed with cardiology, continue other treatment plan, continue physical therapy evaluation, likely the patient will be transferred back to [facility] if the decision was not to pursue any left heart catheterization at this point in time hopefully in the next 24 hours. 10/12: Patient is sitting up in bed in no apparent distress, she appears to be generally weak, she continues to be on heparin drip, she had a long conversation with cardiology yesterday she did not want to go for any heart catheterization at this point in time, I spoke with her again and she is not willing to go for any invasive procedure at this point in time, will continue current treatment plan, transition the patient into her Xarelto 15 mg orally once every day, and follow-up with the patient very closely likely the patient will be discharged tomorrow tomorrow morning, patient did have an ultrasound of the abdomen that did not show any evidence of dilatation of the common bile duct, she did have a lesion in the right kidney that appears to be somewhat suspicious and a cystic lesion in the left kidney urology consultation appreciated, at this point in time patient is not interested for any further intervention we will continue to follow-up with the patient very closely, likely I will send the patient back tomorrow if no plan for left heart catheterization, continue current treatment plan, her prognosis continue to be guarded and she is aware of that REVIEW OF SYSTEMS: Constitutional: No documented fever, no chills, no night sweats. No weight khadijah nge. positive for weakness, fatigue or lethargy. No daytime sleepiness. EENT: No headache. No blurred vision or double vision, no loss of vision. No loss of Hearing, no ringing in the ears, no dizziness. No nasal drainage or congestion. No epistaxis. No sore throat. Lungs: Less shortness of breath, no cough, no sputum production. No wheezing. Reports dyspnea with activity. Cardiovascular: No chest pain, positive for lower extremity edema. positive for palpitations. No paroxysmal nocturnal dyspnea. positive for orthopnea. No lightheadedness or dizziness. No syncopal episodes. Abdominal: Reports abdominal pain. positive for nausea, vomiting. No diarrhea. No constipation. No bloody or tarry stools reports loss of appetite. Genitourinary: No dysuria, increased frequency, urgency. No urinary retention. Musculoskeletal: No myalgias. No muscle weakness, no gait dysfunction, no frequent falls. No back pain. No neck pain. Integumentary: No wounds, no lesions. minimal rash to the lower extremities due to her stasis dermatitis or pruritus. No unusual bruising. No change in hair or nails. Neurologic: No aphasia. No facial droop. No change in mentation. No head injury. No headache. No paralysis. No paresthesia. Psychiatric: No depression. positive for anxiety. No mood swings. Endocrine: No abnormal blood sugars. No weight change. PHYSICAL EXAMINATION: General: 84-year-old female laying down in bed in no respiratory distress HEENT: Head is atraumatic, normocephalic, pupils were equal round reactive to light and recommendation, extraocular muscle movement were intact, sclera nonicteric, conjunctivae were pale, mucous membranes of the mouth are somewhat dry. Neck: Supple, positive for JVP, decreased carotid upstroke bilaterally, no lymphadenopathy. Chest: Decreased breath sounds at the bases, few rhonchi, no expiratory wheezes, no chest wall tenderness, no intercostal retractions. Heart: First heart sound is normal, second heart sounds normal systolic ejection murmur 2/6 again the left sternal border. Abdomen: Soft, nontender, nondistended, positive bowel sounds. Extremities: There is +1 edema no calf tenderness DP +2 bilaterally. Neurologic examination: Patient is awake alert and oriented x3, cranial nerves II-12 appear grossly intact, muscle power were 4 out of 5 in upper extremities and 3 out of 5 in bilateral lower extremities, deep tendon reflexes normal bilaterally. ASSESSMENT AND PLAN: 1. Atrial flutter with 2-1 block and paroxysmal atrial fibrillation currently in sinus rhythm continue patient on heparin drip, transition to Xarelto 15 mg orally once every day, continue metoprolol 25 mg orally twice every day, dis continue amiodarone, will revisit again tomorrow morning to see if the patient is in agreement to have left heart catheterization. 2. Non-ST elevation myocardial infarction. Continue patient on aspirin 81 mg once every day, heparin drip, continue metoprolol 25 mg orally twice every day, continue atorvastatin 40 mg once every day, patient did not want any heart catheterization today we will reevaluate tomorrow morning. 3. Hypertension and hypertensive cardiovascular disease. Continue patient on metoprolol 25 mg orally twice every day. Monitor the patient blood pressure very closely, hold for systolic blood pressure less than 100. 4. Hyperlipidemia. Continue the patient on atorvastatin 40 mg orally once every day monitor lipid panel, keep LDL 55-70. 5. Paroxysmal atrial fibrillation currently in sinus rhythm continue treatment as in Paragraph#1. 6. Hypothyroidism. Currently not taking any medication for replacement monitor the patient TSH and free T4. 7. Acute on chronic diastolic heart failure. we will maintain the patient on metoprolol 25 mg orally twice every day, continue torsemide 20 mg orally once every day, continue spironolactone 12.5 mg once every day continue Farxiga 10 mg orally once every day, monitor the patient daily weight. 8. Hypokalemia . Will start potassium chloride 20 mill equivalents orally twice every day. 9. Chronic kidney disease stage IIIa. Monitor the patient input and output and avoid nephrotoxins. Continue torsemide 20 mg once every day, Farxiga 10 mg orally once every day. 10. Osteopenia of the right hip. Stable at this time. 11. Medical debility. Physical therapy evaluation, likely going back to [facility]. 12. DVT prophylaxis. Currently on heparin drip will transition into Xarelto 15 mg orally once every day. 13. GI prophylaxis. Continue patient on Protonix 40 mg orally once every day. 14. Elevated LFTs likely related to amiodarone use, this was discontinued, ultrasound of the abdomen showed evidence of complicated cyst on the left kidney and lesion in the right kidney, she was seen in consultation by urology did not want any further intervention at this point in time, 15. Likely back to [facility] tomorrow morning. Objective - Vital Signs Vital signs: Vital Signs Temp 97.4 F L 10/12/24 04:00 Pulse 60 10/12/24 04:00 Resp 16 10/12/24 04:00 BP 103/54 10/12/24 04:00 Pulse Ox 96 10/12/24 04:00 FiO2 Intake & Output 10/11/24 10/12/24 10/12/24 18:59 06:59 18:59 Intake Total 570.087 6.937 Output Total 1500 240 Balance -929.913 -233.063 Weight 50.5 kg Intake: Intake, IV Titration 170.087 6.937 Amount Heparin Sod,Pork in 0.45% 170.087 6.937 NaCl 25,000 unit In 0.45 % NaCl 1 250ml.bag @ 12 UNITS/KG/HR 6.151 mls/hr IV .Q24H [facility] Rx#: [id number] Oral 400 Output: Urine 1500 240 Other: Voiding Method External Catheter External Catheter # Bowel Movements 1 - Labs CBC & Chem 7: 10/12/24 05:57 10/12/24 05:57 Labs: Abnormal Lab Results - Last 24 Hours (Table) 10/12/24 10/12/24 10/12/24 Range/Units 00:36 05:57 05:57 WBC 11.69 H (4.50-10.00) 10*3/uL RBC 3.96 L (4.10-5.20) 10*6/uL MPV 13.0 H (9.5-12.2) fL Immature Gran # 0.46 H (0.00-0.04) 10*3/uL Monocytes # 1.48 H (0.20-1.00) 10*3/uL APTT 36.3 H (22.0-30.0) sec Sodium 130 L (137-145) mmol/L Chloride 94 L (98-107) mmol/L Carbon Dioxide 31 H (22-30) mmol/L BUN 36 H (7-17) mg/dL Creatinine 1.12 H (0.52-1.04) mg/dL Total Bilirubin 1.9 H (0.2-1.3) mg/dL AST 41 H (14-36) U/L Alkaline Phosphatase 147 H (38-126) U/L Total Protein 5.5 L (6.3-8.2) g/dL Albumin 2.8 L (3.5-5.0) g/dL
[2024-10-13 07:42] LABS: Basophils # (A) 0.11 10*3/uL (0.00-0.10); Basophils % (A) 1.0 %; Eosinophils # (A) 0.14 10*3/uL (0.04-0.35); Eosinophils % (A) 1.2 %; HCT 38.2 % (37.2-46.3); HGB 12.8 g/dL (12.0-15.0); Lymphocytes # (A) 2.13 10*3/uL (0.90-5.00); Lymphocytes % (A) 18.5 %; MCH 32.2 pg (27.0-32.0); MCHC 33.5 g/dL (32.0-37.0); MCV 96.0 fL (80.0-97.0); Monocytes # (A) 1.59 10*3/uL (0.20-1.00); Monocytes % (A) 13.8 %; Neutrophils # (A) 7.03 10*3/uL (1.80-7.70); Neutrophils % (A) 61.0 %; Platelet Count 222 10*3/uL (140-440); RBC 3.98 10*6/uL (4.10-5.20); RDW 16.9 % (11.5-14.5); WBC 11.52 10*3/uL (4.50-10.00)
[2024-10-13 07:45] LABS: ALT 39 U/L (4-34); AST 44 U/L (14-36); African American GFR (CKD) 55 (>60 ml/min/1.73 sqM); Albumin 3.0 g/dL (3.5-5.0); Alkaline Phosphatase 171 U/L (38-126); Anion Gap 8 mmol/L; Blood Urea Nitrogen 32 mg/dL (7-17); Calcium 9.1 mg/dL (8.4-10.2); Carbon Dioxide 27 mmol/L (22-30); Chloride 98 mmol/L (98-107); Glucose 91 mg/dL (74-99); Non-African American GFR(CKD) 47 (>60 ml/min/1.73 sqM); Potassium 4.5 mmol/L (3.5-5.1); Sodium 133 mmol/L (137-145); Total Protein 5.7 g/dL (6.3-8.2)
[2024-10-13 08:57] VITALS: BP 96/54; PULSE 67; RESP 16; TEMP 98.2
[2024-10-13] MEDS: RIVAROXABAN 15 MG TAB PO SCH (09:54)
--- NOTE | 2024-10-13 12:34 | P.PN ---
Subjective Progress Note Date: 10/13/24 This is a pleasant 84-year-old female patient with a past medical history of hypertension, hyperlipidemia, atrial fibrillation, status post cardioversion, and CAD. She was recently hospitalized at [facility] for mild heart failure with preserved ejection fraction exacerbation as well as A-fib with RVR and mild troponin elevation. At that time she underwent cardioversion and was discharged to [facility]. This admission she presented because of left- sided chest pain radiating to the jaw, chest heaviness and tachycardia. The on admission EKG showed atrial flutter with RVR. She subsequently converted to sinus mechanism. Troponins were found to be elevated peaking at 9.9. She is currently chest pain-free. Denies any current complaints. Her breathing is feeling better. Labs show elevated bilirubin. 10/12/2024 Patient was seen and examined resting comfortably in bed. She has had no complaints of chest discomfort. Her breathing is stable. Labs this morning showed a bilirubin of 1.9. She underwent abdominal ultrasound this morning. 10/13/2024 Patient seen and examined. Patient has declined option of cardiac catheterization and has opted for medical management. She denies chest pain, chest tightness or chest pressure. No shortness of breath. Lower extremity edema is improved. She is continued on heparin drip which will be transition to Xarelto. Blood pressure 96/54, heart rate 67, pulse ox 97% on room air. Abdominal ultrasound revealed cystic appearing lesion in the left kidney, cortical lesion in the right kidney. PHYSICAL EXAMINATION: Neck: Brisk carotid upstroke, no jugular venous distention. Lungs: Poor inspiratory effort, mild bibasilar crackles Heart: Regular S1, S2, systolic murmur Abdomen: Soft nontender, positive bowel sounds. Extremities: 1+ lower extremity edema with chronic skin changes and erythema in bilateral lower extremity. Neuro: Alert, oriented, no focal deficits. ASSESSMENT: # Atrial flutter with 2 is to 1 conduction, currently rate controlled. RVR on admission with symptoms of chest pressure and rate related EKG changes with diffuse ST depression # Paroxysmal atrial fibrillation with recent cardioversion at [facility] # Mild HFpEF exacerbation # NSTEMI # Hypokalemia # CKD PLAN: Patient has opted for medical management. Continue current cardiac medications Patient is cleared for discharge from cardiology perspective will follow-up with Dr. Soto in 1 week. RESERVOIR ENGINEER note has been reviewed, I agree with a documented findings and plan of care. Patient was seen and examined. Objective - Vital Signs Vital signs: Vital Signs Temp 98.2 F 10/13/24 08:30 Pulse 67 10/13/24 08:30 Resp 16 10/13/24 08:30 BP 96/54 10/13/24 08:30 Pulse Ox 97 10/13/24 08:30 FiO2 Intake & Output 10/12/24 10/13/24 10/13/24 18:59 06:59 18:59 Intake Total 480 246.462 240 Output Total 850 290 Balance -370 -43.538 240 Weight 50.5 kg Intake: IV 10 0.9 10 Intake, IV Titration 236.462 Amount Heparin Sod,Pork in 0.45% 236.462 NaCl 25,000 unit In 0.45 % NaCl 1 250ml.bag @ 12 UNITS/KG/HR 6.151 mls/hr IV .Q24H [facility] Rx#: [id number] Oral 480 240 Output: Urine 850 290 Other: Voiding Method External Catheter External Catheter External Catheter # Bowel Movements 1 - Labs CBC & Chem 7: 10/13/24 06:26 10/13/24 06:26 Labs: Abnormal Lab Results - Last 24 Hours (Table) 10/13/24 10/13/24 10/13/24 Range/Units 06:26 06:26 06:26 WBC 11.52 H (4.50-10.00) 10*3/uL RBC 3.98 L (4.10-5.20) 10*6/uL MCH 32.2 H (27.0-32.0) pg MPV 12.8 H (9.5-12.2) fL Immature Gran # 0.52 H (0.00-0.04) 10*3/uL Monocytes # 1.59 H (0.20-1.00) 10*3/uL Basophils # 0.11 H (0.00-0.10) 10*3/uL APTT 35.8 H (22.0-30.0) sec Sodium 133 L (137-145) mmol/L BUN 32 H (7-17) mg/dL Creatinine 1.08 H (0.52-1.04) mg/dL Total Bilirubin 1.8 H (0.2-1.3) mg/dL AST 44 H (14-36) U/L ALT 39 H (4-34) U/L Alkaline Phosphatase 171 H (38-126) U/L Total Protein 5.7 L (6.3-8.2) g/dL Albumin 3.0 L (3.5-5.0) g/dL
--- NOTE | 2024-10-13 13:37 | P.DS ---
Providers Date of admission: 10/08/24 00:33 Expected date of discharge: 10/13/24 Attending physician: Moises Bates Consults: 10/08/24 00:31 Consult Physician Routine Consulting Provider: To Bullock Consult Reason/Comments: Atrial fibrillation with rapid ventricular rate. Do you want consulting provider notified?: Yes 10/12/24 10:20 Consult Physician Routine Consulting Provider: Kd Abdul Consult Reason/Comments: Left renal cystic mass Do you want consulting provider notified?: Yes Primary care physician: Moises Bates Hospital Course: HISTORY OF PRESENT ILLNESS: This is an 84-year-old female with a previous medical history significant for hypertension and hypertensive cardiovascular disease, mixed hyperlipidemia, paroxysmal atrial fibrillation, coronary artery disease involving [place] artery, allergic rhinitis, hypothyroidism, mitral regurgitation and aortic insufficiency, patient was recently hospitalized at [facility] for what appears to be an acute diastolic heart failure due to atrial fibrillation with rapid ventricular response, she also was diagnosed with non-ST elevation myocardial infarction at that time she underwent DC cardioversion she was sent to [facility] for physical therapy rehabilitation patient was doing just fine, I saw her the [id number] about a day before yesterday, and she was doing much much better, she was planning to get out of the intermediate yesterday she was sitting up and developed to have a significant left-sided chest pain radiating to the jaw down the arm she was given 3 nitroglycerin and h er blood pressure dropped, her heart rate went to 240, she developed to have an atrial fibrillation with rapid regular response she was sent to the emergency department at [facility] she was found to be in atrial fibrillation with RVR, at the same time her troponin was slightly elevated however the second troponin came back elevated at 4 patient was ruled into acute non-ST elevation IA, she was started on heparin drip, she was also started on metoprolol 25 mg orally twice every day, she is currently back in sinus rhythm, she appears to be somewhat hypotensive, she did receive IV fluid in the form of normal saline at 75 cc an hour, I will keep that until reevaluate the patient with a chest x-ray 10/09: Patient sitting up in the chair is feeling much better today, she is not on any oxygen at this point in time, her oxygen saturation is perfectly fine, she has no chest pain so far no shortness of breath, no orthopnea, no edema both lower extremities much better than yesterday, she continues to be on heparin drip, patient did have a non-ST elevation myocardial infarction along with an acute diastolic heart failure that she has been recovering from the very well, we will continue current treatment plan, follow the patient very closely, no left heart catheterization is planned by cardiology so far 10/10: Patient is doing much better today, her oxygenation 99% room air, she de nies any chest pain, shortness of breath at this time, she has no abdominal pain, nausea vomiting or diarrhea, she appears to be at baseline, we will try to transfer the patient back to [facility] tomorrow morning. I will obtain a chest x- ray to make sure the resolution of CHF. 10/11: Patient is sitting up in chair in no apparent distress, she is feeling a bit better today than yesterday, she continues to be on heparin drip, she had a long conversation with the gi technician today she did not want to think about heart catheterization at this point in time, we will revisit the patient again tomorrow morning, she does appear to have an elevated bilirubin level at 2.2, we will obtain ultrasound of the abdomen for further evaluation recommendation, this is likely related to the use of amiodarone we will hold amiodarone for now, discussed with cardiology, continue other treatment plan, continue physical therapy evaluation, likely the patient will be transferred back to [facility] if the decision was not to pursue any left heart catheterization at this point in time hopefully in the next 24 hours. 10/12: Patient is sitting up in bed in no apparent distress, she appears to be generally weak, she continues to be on heparin drip, she had a long conversation with cardiology yesterday she did not want to go for any heart catheterization at this point in time, I spoke with her again and she is not willing to go for any invasive procedure at this point in time, will continue current treatment plan, transition the patient into her Xarelto 15 mg orally once every day, and follow-up with the patient very closely likely the patient will be discharged tomorrow tomorrow morning, patient did have an ultrasound of the abdomen that did not show any evidence of dilatation of the common bile duct, she did have a lesion in the right kidney that appears to be somewhat suspicious and a cystic lesion in the left kidney urology consultation appreciated, at this point in time patient is not interested for any further intervention we will continue to follow-up with the patient very closely, likely I will send the patient back tomorrow if no plan for left heart catheterization, continue current treatment plan, her prognosis continue to be guarded and she is aware of that 10/13: Patient sitting up in bed generalized weakness, no chest pain at this time, no shortness of breath except for [place] exertion, no significant swelling both lower extremities, patient will be discharged today to go tomorrow to continue physical therapy rehabilitation I will follow-up with the patient later on this afternoon. Discharge diagnoses: 1. Atrial flutter with 2-1 block and paroxysmal atrial fibrillation currently in sinus rhythm 2. Non-ST elevation myocardial infarction 3. Hypertension and hypertensive cardiovascular disease. 4. Hyperlipidemia. 5. Paroxysmal atrial fibrillation currently in sinus rhythm 6. Hypothyroidism. 7. Acute on chronic diastolic heart failure. 8. Hypokalemia . 9. Chronic kidney disease stage IIIa. 10. Osteopenia of the right hip. 11. Medical debility. 14. Elevated LFTs likely related to amiodarone use 15. The left renal cyst likely proteinaceous cyst and lesion in the right kidney that appears somewhat suspicious patient did not want to do any further intervention Patient Condition at Discharge: Fair Plan - Discharge Summary Discharge Rx Participant: No New Discharge Prescriptions: New Spironolactone [Aldactone] 12.5 mg PO DAILY #0 tab Continue Rivaroxaban [Xarelto] 15 mg PO HS Pantoprazole Sodium [Protonix] 40 mg PO DAILY Nitro-Time Er 2.5mg 2.5 mg PO BID Menthol-Zinc Oxide Oint [Calmoseptine Ointment] 1 applic TOPICAL BID Oyster Shell 500mg 500 mg PO HS Multivitamin + Minerals 1 tab PO DAILY Ascorbic Acid [Vitamin C] 500 mg PO BID Potassium Chloride [Klor-Con M20] 20 meq PO DAILY Metoprolol Tartrate [Lopressor] 25 mg PO BID Magnesium Hydroxide [Milk of Magnesia Concentrate] 7,200 mg PO DAILY PRN PRN Reason: Constipation Ammonium Lactate Lotion [Lac-Hydrin 12% Lotion] 1 applic TOPICAL Q12H bisacodyL [Dulcolax] 10 mg RECTAL DAILY PRN PRN Reason: Constipation Dapagliflozin Propanediol [Farxiga] 10 mg PO DAILY Aspirin 81 mg PO DAILY Atorvastatin [Lipitor] 40 mg PO HS Changed Torsemide [Soaanz] 20 mg PO DAILY #0 Discontinued metOLazone 2.5 mg PO DAILY Discharge Medication List Ammonium Lactate Lotion [Lac-Hydrin 12% Lotion] 1 applic TOPICAL Q12H 10/08/24 [History] Ascorbic Acid [Vitamin C] 500 mg PO BID 10/08/24 [History] Aspirin 81 mg PO DAILY 10/08/24 [History] Atorvastatin [Lipitor] 40 mg PO HS 10/08/24 [History] Dapagliflozin Propanediol [Farxiga] 10 mg PO DAILY 10/08/24 [History] Magnesium Hydroxide [Milk of Magnesia Concentrate] 7,200 mg PO DAILY PRN 10/08/24 [History] Menthol-Zinc Oxide Oint [Calmoseptine Ointment] 1 applic TOPICAL BID 10/08/24 [History] Metoprolol Tartrate [Lopressor] 25 mg PO BID 10/08/24 [History] Multivitamin + Minerals 1 tab PO DAILY 10/08/24 [History] Nitro-Time Er 2.5mg 2.5 mg PO BID 10/08/24 [History] Oyster Shell 500mg 500 mg PO HS 10/08/24 [History] Pantoprazole Sodium [Protonix] 40 mg PO DAILY 10/08/24 [History] Potassium Chloride [Klor-Con M20] 20 meq PO DAILY 10/08/24 [History] Rivaroxaban [Xarelto] 15 mg PO HS 10/08/24 [History] bisacodyL [Dulcolax] 10 mg RECTAL DAILY PRN 10/08/24 [History] Spironolactone [Aldactone] 12.5 mg PO DAILY #0 tab 10/13/24 [Rx] Torsemide [Soaanz] 20 mg PO DAILY #0 10/13/24 [Rx] Follow up Appointment(s)/Referral(s): Juvencio Soto MD [STAFF PHYSICIAN] - 1 Week Moises Bates MD [Primary Care Provider] - 1 Week (At [facility]) Discharge Disposition: TRANSFER TO SNF/ECF
[2024-10-13] MEDS ORDERED: RIVAROXABAN 15 MG TAB PO SCH (17:30)
== END 2024-10-13 15:14 | DRG 280 ==
LOC: EC 20:48 → 3SCARD 10-08 00:33
PROVIDERS: ADMIT Internal Medicine; ATTEND Internal Medicine
DX: I48.92 Unspecified atrial flutter (principal); I50.33 Acute on chronic diastolic (congestive) heart failure; I21.A1 Myocardial infarction type 2; I13.0 Hypertensive heart and chronic kidney disease with heart failure and stage 1 through stage 4 chronic kidney disease, or unspecified chronic kidney disease; N18.31 Chronic kidney disease, stage 3a; E03.9 Hypothyroidism, unspecified; I08.0 Rheumatic disorders of both mitral and aortic valves; I48.0 Paroxysmal atrial fibrillation; J30.9 Allergic rhinitis, unspecified; I25.2 Old myocardial infarction; I44.30 Unspecified atrioventricular block; E78.2 Mixed hyperlipidemia; E87.6 Hypokalemia; I25.10 Atherosclerotic heart disease of native coronary artery without angina pectoris; N28.1 Cyst of kidney, acquired; M85.851 Other specified disorders of bone density and structure, right thigh; T46.2X5A Adverse effect of other antidysrhythmic drugs, initial encounter; R94.5 Abnormal results of liver function studies; Z79.01 Long term (current) use of anticoagulants; Z79.82 Long term (current) use of aspirin; Z79.84 Long term (current) use of oral hypoglycemic drugs; Z79.899 Other long term (current) drug therapy; Z88.0 Allergy status to penicillin; Z88.8 Allergy status to other drugs, medicaments and biological substances
CPT/HCPCS: 36415; 71045; 71046; 76700; 80053; 80061; 83735; 83880; 84484; 85025; 85027; 85610; 85730; 93005; 96361; 96365; 96366; 96367; 96368; 96375; 99291

== ENCOUNTER 2024-10-17 06:27 | Observation (INO) | payer MEDICARE, BC ==
[2024-10-17 06:38] VITALS: TEMP 97.6
--- NOTE | 2024-10-17 06:50 | ED ---
General Adult HPI - General Chief complaint: Chest Pain Stated complaint: Chest Pain Time Seen by Provider: 10/17/24 06:30 Source: patient, EMS, RN notes reviewed Mode of arrival: EMS Limitations: no limitations - History of Present Illness Initial comments: This is a 84-year-old female with history of CKD A-fib on Eliquis presenting to the emergency department from nursing facility for chest pain. Patient states pain raised when she was awake this morning in bed. She denied radiation of pain with associated diaphoresis however stated that she felt nauseated with no vomiting. States that after she was loaded into the ambulance the pain has resolved. Currently patient states that she is chest pain-free. She denies heart palpitations, dyspnea, orthopnea, exertional dyspnea, peripheral edema, cough, fevers or chills. - Related Data Home Medications Medication Instructions Recorded Confirmed Ammonium Lactate Lotion 1 applic TOPICAL Q12H 10/08/24 10/08/24 [Lac-Hydrin 12% Lotion] Ascorbic Acid [Vitamin C] 500 mg PO BID 10/08/24 10/08/24 Aspirin 81 mg PO DAILY 10/08/24 10/08/24 Atorvastatin [Lipitor] 40 mg PO HS 10/08/24 10/08/24 Dapagliflozin Propanediol [Farxiga] 10 mg PO DAILY 10/08/24 10/08/24 Magnesium Hydroxide [Milk of 7,200 mg PO DAILY PRN 10/08/24 10/08/24 Magnesia Concentrate] Menthol-Zinc Oxide Oint 1 applic TOPICAL BID 10/08/24 10/08/24 [Calmoseptine Ointment] Metoprolol Tartrate [Lopressor] 25 mg PO BID 10/08/24 10/08/24 Multivitamin + Minerals 1 tab PO DAILY 10/08/24 10/08/24 Nitro-Time Er 2.5mg 2.5 mg PO BID 10/08/24 10/08/24 Oyster Shell 500mg 500 mg PO HS 10/08/24 10/08/24 Pantoprazole Sodium [Protonix] 40 mg PO DAILY 10/08/24 10/08/24 Potassium Chloride [Klor-Con M20] 20 meq PO DAILY 10/08/24 10/08/24 Rivaroxaban [Xarelto] 15 mg PO HS 10/08/24 10/08/24 bisacodyL [Dulcolax] 10 mg RECTAL DAILY PRN 10/08/24 10/08/24 Previous Rx's Medication Instructions Recorded Spironolactone [Aldactone] 12.5 mg PO DAILY #0 tab 10/13/24 Torsemide [Soaanz] 20 mg PO DAILY #0 10/13/24 Allergies Allergy/AdvReac Type Severity Reaction Status Date / Time diatrizoic acid Allergy Unknown Verified 10/17/24 06:37 Penicillins Allergy Anaphylaxis Verified 10/17/24 06:37 prednisone Allergy Unknown Verified 10/17/24 06:37 shellfish derived Allergy Anaphylaxis Verified 10/17/24 06:37 Sulfa (Sulfonamide Allergy Unknown Verified 10/17/24 06:37 Antibiotics) Iodinated Contrast Media AdvReac Nausea & Verified 10/17/24 06:37 Vomiting & Diarrhea Review of Systems ROS Statement: Those systems with pertinent positive or pertinent negative responses have been documented in the HPI. ROS Other: All systems not noted in ROS Statement are negative. Past Medical History Past Medical History: Coronary Artery Disease (CAD), Heart Failure, Hyperlipidemia Additional Past Medical History / Comment(s): CKD stage 3, low sodium and low potassium, NSTEMI 07/2024 History of Any Multi-Drug Resistant Organisms: None Reported Past Surgical History: No Surgical Hx Reported Past Psychological History: No Psychological Hx Reported Smoking Status: Never smoker Past Alcohol Use History: None Reported Past Drug Use History: Marijuana General Exam Limitations: no limitations ENT exam: Present: normal exam, mucous membranes moist Neck exam: Present: normal inspection. Absent: tenderness, meningismus, lymphadenopathy Respiratory exam: Present: normal lung sounds bilaterally. Absent: respiratory distress, wheezes, rales, rhonchi, stridor Cardiovascular Exam: Present: bradycardia, irregular rhythm. Absent: regular rate, normal rhythm GI/Abdominal exam: Present: soft, normal bowel sounds. Absent: distended, tenderness, guarding, rebound, rigid Extremities exam: Present: normal inspection, full ROM, normal capillary refill. Absent: tenderness, pedal edema, joint swelling, calf tenderness Course Vital Signs 10/17/24 06:28 Temperature 97.6 F Pulse Rate 40 L Respiratory 16 Rate Blood Pressure 108/48 O2 Sat by Pulse 95 Oximetry Medical Decision Making - Medical Decision Making Was pt. sent in by a medical professional or institution (, PA, PSYCHOLOGY TECH, urgent care, hospital, or residential...) When possible be specific @ -No Did you speak to anyone other than the patient for history (EMS, parent, family, police, friend...)? What history was obtained from this source @ -No Did you review nursing and triage notes (agree or disagree)? Why? @ -I reviewed and agree with nursing and triage notes Were old charts reviewed (outside hosp., previous admission, EMS record, old EKG, old radiological studies, urgent care reports/EKG's, residential records)? Report findings @ -No old charts were reviewed Differential Diagnosis (chest pain, altered mental status, abdominal pain women, abdominal pain men, vaginal bleeding, weakness, fever, dyspnea, syncope, headache, dizziness, GI bleed, back pain, seizure, CVA, palpatations, mental health, musculoskeletal)? @ -Differential Chest Pain: Stable Angina, Unstable Angina, STEMI, NSTEMI Aortic Dissection, Pneumothorax, Musculoskeletal, Esophageal Spasm GERD, Cholecystitis, Pancreatitis, Zoster, this is not meant to be an all-inclusive list. EKG interpreted by me (3pts min.). @ -Completed at [address] and T wave abnormalities, ventricular rate 41, QRS 82, QT 187, QTc 123 X-rays interpreted by me (1pt min.). @ -Chest x-ray reveals cardiomegaly with small left pleural effusion with mild diffuse interstitial prominence. CT interpreted by me (1pt min.). @ -None done U/S interpreted by me (1pt. min.). @ -None done What testing was considered but not performed or refused? (CT, X-rays, U/S, labs)? Why? @ -None What meds were considered but not given or refused? Why? @ -Fusion heparin was considered but deferred at this time as patient is chest pain-free and has a mildly elevated troponin that is actually low as compared to this record. Additionally, patient is on Eliquis therefore this medication will be continued orally. Patient's morning rate control medication, Lopressor, is held as patient's rate has been in the low to mid 40s while in the emergency department. Did you discuss the management of the patient with other professionals (pr ofessionals i.e. , PA, PSYCHOLOGY TECH, lab, RT, psych nurse, high school social studies teacher, machine operator farmworker, teacher, port patrol officer, case aide)? Give summary @ -I spoke with Dr. Bates who agreed to admit the patient for cardiac observation with cardiology on consult. Dr. Bates also stated that during the patient; most recent hospital stay for an NSTEMI, she refused cardiac catherization. Was smoking cessation discussed for >3mins.? @ -No Was critical care preformed (if so, how long)? @ -No Were there social determinants of health that impacted care today? How? (Homelessness, low income, unemployed, alcoholism, drug addiction, transportation, low edu. Level, literacy, decrease access to med. care, nursing home, rehab)? @ -No Was there de-escalation of care discussed even if they declined (Discuss DNR or withdrawal of care, Hospice)? DNR status @ -No What co-morbidities impacted this encounter? (DM, HTN, Smoking, COPD, CAD, Cancer, CVA, ARF, Chemo, Hep., AIDS, mental health diagnosis, sleep apnea, mor bid obesity)? @ -None Was patient admitted / discharged? Hospital course, mention meds given and rou te, prescriptions, significant lab abnormalities, going to OR and other pertinent info. @ -Admitted. 84-year-old female presenting to the ER via EMS for complaints of chest pain. On arrival patient is chest pain-free and is noted to be bradycardic with a heart rate in the 40s. EKG reveals no evidence of ST segment changes. She is provided with dose of aspirin. Patient's troponin is mildly elevated at 0.074, improved BNP from previous visit at 7090. Chest x-ray reveals cardiomegaly with small left pleural effusion. On reevaluation patient is still bradycardic and has denied recurrent chest pain. serial cardiac enzymes ordered. Patient will be admitted for cardiac observation. case discussed with my attending, Dr. Mendez. admitted to Dr. Bates. Undiagnosed new problem with uncertain prognosis? @ -No Drug Therapy requiring intensive monitoring for toxicity (Heparin, Nitro, Insulin, Cardizem)? @ -No Were any procedures done? @ -No Diagnosis/symptom? @ -NSTEMI Acute, or Chronic, or Acute on Chronic? @ -Acute Uncomplicated (without systemic symptoms) or Complicated (systemic symptoms)? @ -complicated Side effects of treatment? @ -No Exacerbation, Progression, or Severe Exacerbation? @ -No Poses a threat to life or bodily function? How? (Chest pain, [place], NH, pneumonia, PE, COPD, DKA, ARF, appy, cholecystitis, CVA, Diverticulitis, Homicidal, Suicidal, threat to staff... and all critical care pts) @ -No - Lab Data Result diagrams: 10/17/24 06:50 10/17/24 06:50 Lab Results 10/17/24 10/17/24 10/17/24 Range/Units 06:50 06:50 06:50 WBC 14.27 H (4.50-10.00) 10*3/uL RBC 4.04 L (4.10-5.20) 10*6/uL Hgb 12.9 (12.0-15.0) g/dL Hct 39.5 (37.2-46.3) % MCV 97.8 H (80.0-97.0) fL MCH 31.9 (27.0-32.0) pg MCHC 32.7 (32.0-37.0) g/dL Plt Count 277 (140-440) 10*3/uL MPV 10.9 (9.5-12.2) fL Immature Gran % (Auto) 6.2 % Immature Gran # 0.89 H (0.00-0.04) 10*3/uL PT 14.0 H (10.0-12.5) sec INR 1.3 H (<1.2) APTT 32.6 H (22.0-30.0) sec Sodium 135 L (137-145) mmol/L Potassium 5.6 H (3.5-5.1) mmol/L Chloride 103 (98-107) mmol/L Carbon Dioxide 25 (22-30) mmol/L Anion Gap 7 mmol/L BUN 26 H (7-17) mg/dL Creatinine 1.10 H (0.52-1.04) mg/dL Est GFR (CKD-EPI)AfAm 53 (>60 ml/min/1.73 sqM) Est GFR (CKD-EPI)NonAf 46 (>60 ml/min/1.73 sqM) Glucose 113 H (74-99) mg/dL Calcium 8.9 (8.4-10.2) mg/dL Magnesium 1.9 (1.6-2.3) mg/dL Total Bilirubin 1.2 (0.2-1.3) mg/dL AST 42 H (14-36) U/L ALT 43 H (4-34) U/L Alkaline Phosphatase 173 H (38-126) U/L Troponin I (0.000-0.034) ng/mL NT-Pro-B Natriuret Pep 7090 pg/mL Total Protein 6.2 L (6.3-8.2) g/dL Albumin 3.2 L (3.5-5.0) g/dL Lipase 209 (23-300) U/L 10/17/24 Range/Units 06:50 WBC (4.50-10.00) 10*3/uL RBC (4.10-5.20) 10*6/uL Hgb (12.0-15.0) g/dL Hct (37.2-46.3) % MCV (80.0-97.0) fL MCH (27.0-32.0) pg MCHC (32.0-37.0) g/dL Plt Count (140-440) 10*3/uL MPV (9.5-12.2) fL Immature Gran % (Auto) % Immature Gran # (0.00-0.04) 10*3/uL PT (10.0-12.5) sec INR (<1.2) APTT (22.0-30.0) sec Sodium (137-145) mmol/L Potassium (3.5-5.1) mmol/L Chloride (98-107) mmol/L Carbon Dioxide (22-30) mmol/L Anion Gap mmol/L BUN (7-17) mg/dL Creatinine (0.52-1.04) mg/dL Est GFR (CKD-EPI)AfAm (>60 ml/min/1.73 sqM) Est GFR (CKD-EPI)NonAf (>60 ml/min/1.73 sqM) Glucose (74-99) mg/dL Calcium (8.4-10.2) mg/dL Magnesium (1.6-2.3) mg/dL Total Bilirubin (0.2-1.3) mg/dL AST (14-36) U/L ALT (4-34) U/L Alkaline Phosphatase (38-126) U/L Troponin I 0.074 H* (0.000-0.034) ng/mL NT-Pro-B Natriuret Pep pg/mL Total Protein (6.3-8.2) g/dL Albumin (3.5-5.0) g/dL Lipase (23-300) U/L Disposition Clinical Impression: NSTEMI (non-ST elevated myocardial infarction), Bradycardia Disposition: ADMITTED IP TO THIS [facility] Condition: Stable Referrals: Moises Bates MD [Primary Care Provider] - 1-2 days Decision to Admit Reason: Admit from EC Decision Date: 10/17/24 Decision Time: 08:15
[2024-10-17] MEDS: ASPIRIN 81 MG PO STA (06:51)
--- NOTE | 2024-10-17 07:06 | XR ---
EXAMINATION TYPE: XR chest 2V DATE OF EXAM: 10/17/2024 7:02 AM COMPARISON: Chest radiographs from 10/10/2024 TECHNIQUE: XR chest 2V Frontal and lateral views of the chest. CLINICAL INDICATION:Female, 84 years old with history of Chest Pain; FINDINGS: Lungs/Pleura: Small left pleural effusion. No pneumothorax. The right lung is clear. No focal consoli dation. Mild diffuse interstitial prominence. Heart/mediastinum: Cardiomediastinal silhouette is enlarged and stable. Atherosclerotic calcificatio ns are seen in the aorta. Musculoskeletal: Multiple level degenerative disc disease changes seen throughout the spine. IMPRESSION: Cardiomegaly with small left pleural effusion. Mild diffuse interstitial prominence. Correlate for po ssible CHF exacerbation. [facility], , 10/17/2024 7:03 AM
[2024-10-17 07:21] LABS: HCT 39.5 % (37.2-46.3); HGB 12.9 g/dL (12.0-15.0); MCH 31.9 pg (27.0-32.0); MCHC 32.7 g/dL (32.0-37.0); MCV 97.8 fL (80.0-97.0); Platelet Count 277 10*3/uL (140-440); RBC 4.04 10*6/uL (4.10-5.20); RDW 17.2 % (11.5-14.5); WBC 14.27 10*3/uL (4.50-10.00)
[2024-10-17 07:30] LABS: INR 1.3 (<1.2); Partial Thromboplastin Time 32.6 sec (22.0-30.0); Prothrombin Time 14.0 sec (10.0-12.5)
[2024-10-17 07:53] LABS: ALT 43 U/L (4-34); AST 42 U/L (14-36); African American GFR (CKD) 53 (>60 ml/min/1.73 sqM); Albumin 3.2 g/dL (3.5-5.0); Alkaline Phosphatase 173 U/L (38-126); Anion Gap 7 mmol/L; Blood Urea Nitrogen 26 mg/dL (7-17); Calcium 8.9 mg/dL (8.4-10.2); Carbon Dioxide 25 mmol/L (22-30); Chloride 103 mmol/L (98-107); Glucose 113 mg/dL (74-99); Lipase 209 U/L (23-300); Magnesium 1.9 mg/dL (1.6-2.3); Non-African American GFR(CKD) 46 (>60 ml/min/1.73 sqM); Potassium 5.6 mmol/L (3.5-5.1); Sodium 135 mmol/L (137-145); Total Protein 6.2 g/dL (6.3-8.2)
[2024-10-17 08:00] LABS: NT-Pro-B-Type Natriuretic Pept 7090 pg/mL
[2024-10-17] MEDS ORDERED: NALOXONE 0.4 MG/ML 1 ML VIAL IV PRN (08:11)
[2024-10-17] MEDS ORDERED: ACETAMINOPHEN TAB 325 MG TAB PO PRN (08:11)
[2024-10-17 08:26] LABS: Eosinophils # (M) 0.29 k/uL (0-0.7); Lymphocytes # (M) 2.14 k/uL (1.0-4.8); Metamyelocytes # (M) 0.14 k/uL (0); Monocytes # (M) 1.43 k/uL (0-1.0); Myelocytes # (M) 0.14 k/uL (0); Neutrophils # (M) 10.42 k/uL (1.3-7.7); Neutrophils % (M) 73 %; Total Cells Counted 200
[2024-10-17 08:27] LABS: Anisocytosis (M) Present; Poikilocytosis (M) Present; Spherocytes Present
[2024-10-17 10:25] VITALS: BP 99/50; PULSE 60; RESP 18
[2024-10-17] MEDS: POTASSIUM CHLORIDE ER 20 MEQ TAB.ER PO SCH (10:26)
[2024-10-17] MEDS: PANTOPRAZOLE 40 MG TABLET PO SCH (10:26)
[2024-10-17] MEDS: AMMONIUM LACTATE 12% LOTION 225 GM BTL TOPICAL SCH (10:26)
[2024-10-17] MEDS: SPIRONOLACTONE 25 MG TAB PO SCH (10:26)
[2024-10-17] MEDS: NITROGLYCERIN EXTENDED RELEASE 2.5 MG CAPSULE.ER PO SCH (10:27)
[2024-10-17] MEDS: ASPIRIN 81 MG PO SCH (10:27)
[2024-10-17] MEDS: FUROSEMIDE 40 MG TAB PO SCH (10:27)
[2024-10-17] MEDS: METOPROLOL TARTRATE 25 MG TAB PO SCH (10:27)
[2024-10-17] MEDS: ASCORBIC ACID 500 MG TAB PO SCH (10:27)
[2024-10-17] MEDS: MULTIVITAMINS, THERA 1 EACH TAB PO SCH (10:27)
[2024-10-17] MEDS: DAPAGLIFLOZIN PROPANEDIOL 10 MG TABLET PO SCH (10:27)
--- NOTE | 2024-10-17 11:30 | P.HPIM ---
History of Present Illness H&P Date: 10/17/24 Chief Complaint: Chest pain HISTORY AND PHYSICAL AND DISCHARGE SUMMARY: HISTORY OF PRESENT ILLNESS: This is an 84-year-old female with a previous medical history s ignificant for hypertension and hypertensive cardiovascular disease, mixed hyperlipidemia, paroxysmal atrial fibrillation, coronary artery disease involving [place] artery, allergic rhinitis, hypothyroidism, mitral regurgitation and aortic insufficiency, patient was recently hospitalized at [facility] for what appears to be an acute diastolic heart failure due to atrial fibrillation with rapid ventricular response, she also was diagnosed with non-ST elevation myocardial infarction at that time she underwent DC cardioversion she was sent to [facility] for physical therapy rehabilitation, patient was recently discharged from [facility] She was admitted for a chest pain and with atrial fi brillation with rapid response, she was seen in consultation by cardiology who recommended for the patient to go for left heart catheterization at that. She had declined, and she was sent back to [facility], about 4 days ago, today in the morning she was sitting up in the chair she had substernal chest pain associated with increased shortness of breath, she was shipped to the hospital for evaluation by cardiology, her cardiac exam was slightly elevated, patient was admitted to hospital for evaluation by cardiology hopefully she will agree with heart catheterization at this point in time. Patient has been seen by cardiology and cleared for discharge. Patient will be discharged back to [facility] today in stable condition. REVIEW OF SYSTEMS: Constitutional: No documented fever, no chills, no night sweats. No weight change. positive for weakness, fatigue or lethargy. No daytime sleepiness. EENT: No headache. No blurred vision or double vision, no loss of vision. No loss of Hearing, no ringing in the ears, no dizziness. No nasal drainage or congestion. No epistaxis. No sore throat. Lungs: positive for shortness of breath, no cough, no sputum production. No wheezing. Reports dyspnea with activity. Cardiovascular: positive for chest pain, positive for lower extremity edema. positive for palpitations. No paroxysmal nocturnal dyspnea. positive for orthopnea. No lightheadedness or dizziness. No syncopal episodes. Abdominal: Reports abdominal pain. positive for nausea, vomiting. No diarrhea. No constipation. No bloody or tarry stools reports loss of appetite. Genitourinary: No dysuria, increased frequency, urgency. No urinary retention. Musculoskeletal: No myalgias. No muscle weakness, no gait dysfunction, no frequent falls. No back pain. No neck pain. Integumentary: No wounds, no lesions. No rash or pruritus. No unusual bruising. No change in hair or nails. Neurologic: No aphasia. No facial droop. No change in mentation. No head injury. No headache. No paralysis. No paresthesia. Psychiatric: No depression. positive for anxiety. No mood swings. Endocrine: No abnormal blood sugars. No weight change. PAST MEDICAL HISTORY: Hypertension and hypertensive vascular disease. Mixed hyperlipidemia. Hypothyroidism. Coronary artery disease. Paroxysmal atrial fibrillation. Nonrheumatic mitral regurgitation None rheumatic aortic valve regurgitation Allergic rhinitis. Chronic diastolic heart failure. PAST SURGICAL HISTORY: Appendectomy 1985 hysterectomy 1985 Colonoscopy. Right breast biopsy 1967 Left breast biopsy 1984 Hernia repair 1998 D&C 1984 Cataract surgery 2014 Hand and wrist ORIF 2023 Danny Riggins SOCIAL HISTORY: Patient denies any alcohol ingestion, she denies any drug use or abuse, she does not have any marijuana use, she used to smoke, she quit many years ago, she is currently at [facility] for physical therapy and rehabilitation. FAMILY HISTORY: Father at age 64 from colon cancer mother at the age of 84 from CVA patient had 1 sister who at the age of 36 from cervical cancer and had complication from radiation treatment including colitis and she has 1 at the age of 68 from cervical cancer and 1 from ischemic cardiomyopathy post AICD patient had 1 son who at the age of 42 from cardiac arrest PHYSICAL EXAMINATION: General: 84-year-old female laying down in bed in no respiratory distress HEENT: Head is atraumatic, normocephalic, pupils were equal round reactive to light and recommendation, extraocular muscle movement were intact, sclera nonicteric, conjunctivae were pale, mucous membranes of the mouth are somewhat dry. Neck: Supple, positive for JVP, decreased carotid upstroke bilaterally, no lymphadenopathy. Chest: Decreased breath sounds at the bases, few rhonchi, no expiratory wheezes, no chest wall tenderness, no intercostal retractions. Heart: First heart sound is normal, second heart sounds normal systolic ejection murmur 2/6 again the left sternal border. Abdomen: Soft, nontender, nondistended, positive bowel sounds. Extremities: There is +1 edema no calf tenderness DP +2 bilaterally. Neurologic examination: Patient is awake alert and oriented x3, cranial nerves II-12 appear grossly intact, muscle power were 4 out of 5 in upper extremities and 3 out of 5 in bilateral lower extremities, deep tendon reflexes normal bilaterally. ASSESSMENT AND PLAN: 1. Chest pain likely related to underlying coronary artery disease. Discontinue the patient Xarelto started the patient on heparin drip, cardiology consultation, cardiac enzymes,patient already seen by cardiology she declined Left heart Catherization and she is cleared for discharge on same Prescription, we will follow up with her at [facility] in 3 days 2. Type II MT Continue patient on aspirin 81 mg once every day, , continue patient on metoprolol 25 mg orally twice every day, continue the patient on Lipitor 40 mg orally once every day, cardiology consultation, patient declined Left Heart catherization 3. Hypertension and hypertensive cardiovascular disease. Continue patient on metoprolol 25 mg orally twice every day. Monitor the patient blood pressure very closely, hold for systolic blood pressure less than 100. 4. Hyperlipidemia. Continue the patient on atorvastatin 40 mg orally once every day monitor lipid panel, keep LDL 55-70. 5. Paroxysmal atrial fibrillation currently in sinus rhythm continue treatment as in Paragraph#1. 6. Hypothyroidism. Currently not taking any medication for replacement monitor the patient TSH and free T4. 7. Acute on chronic diastolic heart failure. we will maintain the patient on metoprolol 25 mg orally twice every day, start the patient on Lasix 40 mg IV every 12 hours, metolazone 2.5 mg orally once every day, monitor the patient input and output and daily weight. 8. Hypokalemia patient will receive 40 meq in the ER I will give another 40 mill equivalent IV piggyback x 1 check potassium and magnesium patient will be g iven magnesium sulfate 2 g piggyback x 1 as well. Patient will be started on potassium chloride 20 mill equivalents orally twice every day 9. Chronic kidney disease stage IIIa. Monitor the patient input and output and avoid nephrotoxins. Continue Lasix 40 mg IV push every 12 hours, metolazone 2.5 mg orally once every day monitor the patient potassium very closely 10. Osteopenia of the right hip. Stable at this time. 11. Medical debility. Physical therapy evaluation. 12. DVT prophylaxis. we will continue with Xarelto 15 mg po daily 13. GI prophylaxis. Continue patient on Protonix 40 mg orally once every day. 14. Patient will be discharged back to [facility] today. Past Medical History Past Medical History: Coronary Artery Disease (CAD), Heart Failure, Hyperlipidemia Additional Past Medical History / Comment(s): CKD stage 3, low sodium and low potassium, NSTEMI 07/2024 History of Any Multi-Drug Resistant Organisms: None Reported Past Surgical History: No Surgical Hx Reported Past Psychological History: No Psychological Hx Reported Smoking Status: Never smoker Past Alcohol Use History: None Reported Past Drug Use History: Marijuana Medications and Allergies Home Medications Medication Instructions Recorded Confirmed Type Ammonium Lactate Lotion 1 applic TOPICAL Q12H 10/08/24 10/17/24 History [Lac-Hydrin 12% Lotion] Ascorbic Acid [Vitamin C] 500 mg PO BID 10/08/24 10/17/24 History Aspirin 81 mg PO DAILY 10/08/24 10/17/24 History Atorvastatin [Lipitor] 40 mg PO HS 10/08/24 10/17/24 History Dapagliflozin Propanediol [Farxiga] 10 mg PO DAILY 10/08/24 10/17/24 History Metoprolol Tartrate [Lopressor] 25 mg PO BID 10/08/24 10/17/24 History Multivitamin + Minerals 1 tab PO DAILY 10/08/24 10/17/24 History Nitro-Time Er 2.5mg 2.5 mg PO BID 10/08/24 10/17/24 History Oyster Shell 500mg 500 mg PO HS 10/08/24 10/17/24 History Pantoprazole Sodium [Protonix] 40 mg PO DAILY 10/08/24 10/17/24 History Potassium Chloride [Klor-Con M20] 20 meq PO DAILY 10/08/24 10/17/24 History Rivaroxaban [Xarelto] 15 mg PO HS 10/08/24 10/17/24 History bisacodyL [Dulcolax] 10 mg RECTAL DAILY PRN 10/08/24 10/17/24 History Spironolactone [Aldactone] 12.5 mg PO DAILY #0 tab 10/13/24 10/17/24 Rx Torsemide [Soaanz] 20 mg PO DAILY #0 10/13/24 10/17/24 Rx Magnesium Hydroxide [Milk of 2,400 mg PO DAILY PRN 10/17/24 10/17/24 History Magnesia] Na Phos,M-B/Na Phos,Di-Ba [Fleet 133 ml RECTAL DAILY PRN 10/17/24 10/17/24 History Adult] Allergies Allergy/AdvReac Type Severity Reaction Status Date / Time diatrizoic acid Allergy Unknown Verified 10/17/24 08:28 Penicillins Allergy Anaphylaxis Verified 10/17/24 08:28 prednisone Allergy Unknown Verified 10/17/24 08:28 shellfish derived Allergy Anaphylaxis Verified 10/17/24 08:28 Sulfa (Sulfonamide Allergy Unknown Verified 10/17/24 08:28 Antibiotics) Iodinated Contrast Media AdvReac Nausea & Verified 10/17/24 08:28 Vomiting & Diarrhea Physical Exam Vitals: Vital Signs Temp Pulse Resp BP Pulse Ox 10/17/24 06:28 97.6 F 40 L 16 108/48 95 Intake and Output 10/16/24 10/17/24 10/17/24 22:59 06:59 14:59 Other: Weight 51.256 kg Results CBC & Chem 7: 10/17/24 06:50 10/17/24 06:50 Labs: Abnormal Lab Results - Last 24 Hours (Table) 10/17/24 10/17/24 10/17/24 Range/Units 06:50 06:50 06:50 WBC 14.27 H (4.50-10.00) 10*3/uL RBC 4.04 L (4.10-5.20) 10*6/uL MCV 97.8 H (80.0-97.0) fL Immature Gran # 0.89 H (0.00-0.04) 10*3/uL Neutrophils # (Manual) 10.42 H (1.3-7.7) k/uL Monocytes # (Manual) 1.43 H (0-1.0) k/uL Metamyelocytes # (Man) 0.14 H (0) k/uL Myelocytes # (Manual) 0.14 H (0) k/uL PT 14.0 H (10.0-12.5) sec INR 1.3 H (<1.2) APTT 32.6 H (22.0-30.0) sec Sodium 135 L (137-145) mmol/L Potassium 5.6 H (3.5-5.1) mmol/L BUN 26 H (7-17) mg/dL Creatinine 1.10 H (0.52-1.04) mg/dL Glucose 113 H (74-99) mg/dL AST 42 H (14-36) U/L ALT 43 H (4-34) U/L Alkaline Phosphatase 173 H (38-126) U/L Troponin I (0.000-0.034) ng/mL Total Protein 6.2 L (6.3-8.2) g/dL Albumin 3.2 L (3.5-5.0) g/dL // Range/Units 06:50 WBC (4.50-10.00) 10*3/uL RBC (4.10-5.20) 10*6/uL MCV (80.0-97.0) fL Immature Gran # (0.00-0.04) 10*3/uL Neutrophils # (Manual) (1.3-7.7) k/uL Monocytes # (Manual) (0-1.0) k/uL Metamyelocytes # (Man) (0) k/uL Myelocytes # (Manual) (0) k/uL PT (10.0-12.5) sec INR (<1.2) APTT (22.0-30.0) sec Sodium (137-145) mmol/L Potassium (3.5-5.1) mmol/L BUN (7-17) mg/dL Creatinine (0.52-1.04) mg/dL Glucose (74-99) mg/dL AST (14-36) U/L ALT (4-34) U/L Alkaline Phosphatase (38-126) U/L Troponin I 0.074 H* (0.000-0.034) ng/mL Total Protein (6.3-8.2) g/dL Albumin (3.5-5.0) g/dL
--- NOTE | 2024-10-17 12:02 | P.CRDCN ---
History of Present Illness History of present illness: HISTORY OF PRESENT ILLNESS: This is a 84-year-old female with a past medical history significant for non- STEMI, atrial flutter, atrial fibrillation, congestive heart failure, and CKD. Patient follows in the office with Dr. Soto. We have been asked to see the patient in consultation for elevated troponins. Patient examined at the bedside in the emergency room. Patient was admitted to the hospital earlier this month secondary to atrial flutter and non-STEMI. Patient declined to undergo any invasive cardiac procedures and she was discharged to [facility]. She states that yesterday she had some pain in the middle of her chest which is the first time she had experienced chest pain. She also reports that she had some nausea which has since resolved. This morning she states she is feeling better with no chest pain, shortness of breath, or dizziness. She is asking to be discharged back to [facility]. Initial EKG reveals junctional rhythm. However bedside telemetry reveals sinus mechanism. No evidence of atrial flutter or atrial fibrillation. Troponins are minimally elevated but flat and downtrending from recent non- STEMI. REVIEW OF SYSTEMS: At the time of my exam: CONSTITUTIONAL: Denies fever or chills. HEENT: Denies blurred vision, vision changes, or eye pain. Denies hemoptysis CARDIOVASCULAR: Denies chest pain. Denies orthopnea. Denies PND. Denies palpitations RESPIRATORY: Denies shortness of breath. GASTROINTESTINAL: Denies abdominal pain. Denies nausea or vomiting. HEMATOLOGIC: Denies bleeding disorders. GENITOURINARY: Denies any blood in urine. SKIN: Denies pruitis. Denies rash. PHYSICAL EXAM: VITAL SIGNS: Reviewed. GENERAL: Well-developed in no acute distress. HEENT: Head is normocephalic. Pupils are equal, round. Sclerae anicteric. Mucous membranes of the mouth are moist. Neck supple. No JVD or thyromegaly LUNGS: Respirations even and unlabored. Lungs essentially clear to auscultation bilaterally. HEART: Regular rate and rhythm. S1 and S2 heard. Systolic murmur noted. ABDOMEN: Soft. Nondistended. Nontender. EXTREMITIES: Normal range of motion. No clubbing or cyanosis. Peripheral pulses intact. No lower extremity edema NEUROLOGIC: Awake and alert. Oriented x 3. ASSESSMENT: Nausea, resolved Chest pain, resolved Junctional rhythm, resolved Elevated troponins, downtrending from recent non-STEMI, no evidence for new acute ischemic event History of paroxysmal atrial fibrillation History of typical atrial flutter History of congestive heart failure with preserved EF, currently euvolemic Recent cardioversion at [facility] [place] PLAN: An acute coronary event has been ruled out Resume home cardiac medications Patient was recently admitted with non-STEMI and was very clear she did not want to undergo any cardiac procedures. She continues to decline any procedures. Patient may be discharged back to [facility] today from a cardiac standpoint and follow-up in the office with Dr. Soto Nurse practitioner note has been reviewed by physician. Signing provider agrees with the documented findings, assessment, and plan of care documented by [employer] OFFICER as a scribe. Past Medical History Past Medical History: Coronary Artery Disease (CAD), Heart Failure, Hyperlipidemia Additional Past Medical History / Comment(s): CKD stage 3, low sodium and low potassium, NSTEMI 07/2024 History of Any Multi-Drug Resistant Organisms: None Reported Past Surgical History: No Surgical Hx Reported Past Psychological History: No Psychological Hx Reported Smoking Status: Never smoker Past Alcohol Use History: None Reported Past Drug Use History: Marijuana Medications and Allergies Home Medications Medication Instructions Recorded Confirmed Type Ammonium Lactate Lotion 1 applic TOPICAL Q12H 10/08/24 10/17/24 History [Lac-Hydrin 12% Lotion] Ascorbic Acid [Vitamin C] 500 mg PO BID 10/08/24 10/17/24 History Aspirin 81 mg PO DAILY 10/08/24 10/17/24 History Atorvastatin [Lipitor] 40 mg PO HS 10/08/24 10/17/24 History Dapagliflozin Propanediol [Farxiga] 10 mg PO DAILY 10/08/24 10/17/24 History Metoprolol Tartrate [Lopressor] 25 mg PO BID 10/08/24 10/17/24 History Multivitamin + Minerals 1 tab PO DAILY 10/08/24 10/17/24 History Nitro-Time Er 2.5mg 2.5 mg PO BID 10/08/24 10/17/24 History Oyster Shell 500mg 500 mg PO HS 10/08/24 10/17/24 History Pantoprazole Sodium [Protonix] 40 mg PO DAILY 10/08/24 10/17/24 History Potassium Chloride [Klor-Con M20] 20 meq PO DAILY 10/08/24 10/17/24 History Rivaroxaban [Xarelto] 15 mg PO HS 10/08/24 10/17/24 History bisacodyL [Dulcolax] 10 mg RECTAL DAILY PRN 10/08/24 10/17/24 History Spironolactone [Aldactone] 12.5 mg PO DAILY #0 tab 10/13/24 10/17/24 Rx Torsemide [Soaanz] 20 mg PO DAILY #0 10/13/24 10/17/24 Rx Magnesium Hydroxide [Milk of 2,400 mg PO DAILY PRN 10/17/24 10/17/24 History Magnesia] Na Phos,M-B/Na Phos,Di-Ba [Fleet 133 ml RECTAL DAILY PRN 10/17/24 10/17/24 History Adult] Allergies Allergy/AdvReac Type Severity Reaction Status Date / Time diatrizoic acid Allergy Unknown Verified 10/17/24 08:28 Penicillins Allergy Anaphylaxis Verified 10/17/24 08:28 prednisone Allergy Unknown Verified 10/17/24 08:28 shellfish derived Allergy Anaphylaxis Verified 10/17/24 08:28 Sulfa (Sulfonamide Allergy Unknown Verified 10/17/24 08:28 Antibiotics) Iodinated Contrast Media AdvReac Nausea & Verified 10/17/24 08:28 Vomiting & Diarrhea Physical Exam Vitals: Vital Signs Temp Pulse Resp BP Pulse Ox 10/17/24 10:00 60 18 99/50 97 10/17/24 06:28 97.6 F 40 L 16 108/48 95 Intake and Output 10/16/24 10/17/24 10/17/24 22:59 06:59 14:59 Other: Weight 51.256 kg Results 10/17/24 06:50 10/17/24 06:50 Cardiac Enzymes 10/17/24 10/17/24 10/17/24 Range/Units 06:50 06:50 08:43 AST 42 H (14-36) U/L Troponin I 0.074 H* 0.076 H* (0.000-0.034) ng/mL Coagulation 10/17/24 Range/Units 06:50 PT 14.0 H (10.0-12.5) sec APTT 32.6 H (22.0-30.0) sec CBC 10/17/24 Range/Units 06:50 WBC 14.27 H (4.50-10.00) 10*3/uL RBC 4.04 L (4.10-5.20) 10*6/uL Hgb 12.9 (12.0-15.0) g/dL Hct 39.5 (37.2-46.3) % Plt Count 277 (140-440) 10*3/uL Comprehensive Metabolic Panel 10/17/24 Range/Units 06:50 Sodium 135 L (137-145) mmol/L Potassium 5.6 H (3.5-5.1) mmol/L Chloride 103 (98-107) mmol/L Carbon Dioxide 25 (22-30) mmol/L BUN 26 H (7-17) mg/dL Creatinine 1.10 H (0.52-1.04) mg/dL Glucose 113 H (74-99) mg/dL Calcium 8.9 (8.4-10.2) mg/dL AST 42 H (14-36) U/L ALT 43 H (4-34) U/L Alkaline Phosphatase 173 H (38-126) U/L Total Protein 6.2 L (6.3-8.2) g/dL Albumin 3.2 L (3.5-5.0) g/dL Intake and Output 10/16/24 10/17/24 10/17/24 22:59 06:59 14:59 Other: Weight 51.256 kg 10/17/24 06:50 10/17/24 06:50
[2024-10-17] MEDS ORDERED: RIVAROXABAN 15 MG TAB PO SCH (17:30)
[2024-10-17] MEDS ORDERED: METOPROLOL TARTRATE 25 MG TAB PO SCH (21:00)
[2024-10-17] MEDS ORDERED: ATORVASTATIN 40 MG TAB PO SCH (21:00)
[2024-10-17] MEDS ORDERED: CALCIUM CARBONATE 500 MG CHEWABLE PO SCH (21:00)
[2024-10-17] MEDS ORDERED: METOPROLOL TARTRATE 12.5 MG TAB PO SCH (21:00)
== END 2024-10-17 11:43 ==
LOC: EC 06:27 → 3SCARD 10:10
PROVIDERS: ADMIT Internal Medicine; ATTEND Internal Medicine
DX: R07.2 Precordial pain (principal); I21.A1 Myocardial infarction type 2; I48.0 Paroxysmal atrial fibrillation; I13.0 Hypertensive heart and chronic kidney disease with heart failure and stage 1 through stage 4 chronic kidney disease, or unspecified chronic kidney disease; I50.33 Acute on chronic diastolic (congestive) heart failure; N18.31 Chronic kidney disease, stage 3a; I25.10 Atherosclerotic heart disease of native coronary artery without angina pectoris; I49.2 Junctional premature depolarization; I48.3 Typical atrial flutter; E87.6 Hypokalemia; R79.89 Other specified abnormal findings of blood chemistry; E78.2 Mixed hyperlipidemia; E03.9 Hypothyroidism, unspecified; I34.0 Nonrheumatic mitral (valve) insufficiency; R00.1 Bradycardia, unspecified; M85.851 Other specified disorders of bone density and structure, right thigh; R53.81 Other malaise; Z79.82 Long term (current) use of aspirin; Z79.84 Long term (current) use of oral hypoglycemic drugs; Z79.01 Long term (current) use of anticoagulants; Z79.899 Other long term (current) drug therapy; Z88.0 Allergy status to penicillin; Z88.2 Allergy status to sulfonamides; Z88.8 Allergy status to other drugs, medicaments and biological substances; Z91.041 Radiographic dye allergy status; Z91.013 Allergy to seafood
CPT/HCPCS: 99285; 36415; 93005; 83880; 80053; 83690; 83735; 84484; 85025; 85610; 85730; 71046; G0378